=== PATIENT | female | born 1940 | race Caucasian/White ===

== ENCOUNTER 2017-12-19 09:28 | Outpatient (CLI) | payer MEDICARE, OTHER, SELFPAY ==
[2017-12-19 09:54] LABS: Abs Immature Grans 0.03 k/cumm (0.0-0.09); HCT 44.4 % (36.0-46.0); HGB 14.4 g/dL (12.0-15.5); Mean Corp. HGB Concentration 32.4 g/dL (32.0-36.0); Mean Corpuscular Hemoglobin 29.8 pg (27.0-33.0); Mean Corpuscular Volume 91.7 fL (80-95); Mean Platelet Volume 10.5 fL (8.0-11.0); Platelet Count 243 x1000/uL (130-400); RBC 4.84 m/cumm (4.00-5.20); RBC Distribution Width 14.5 % (11.7-14.6); White Blood Cell Count 18.47 k/cumm (4.4-10.8)
[2017-12-19 10:59] LABS: Absolute Lymphocyte Count 13.67 k/cumm (1.2-3.4); Absolute Monocyte Count 1.48 k/cumm (0.11-0.7); Absolute Neutrophil Count 3.32 k/cumm (1.2-6.7); Atypical Lymphocytes % 14
[2017-12-19 11:00] LABS: RBC Morphology Normal
== END 2017-12-19 09:48 ==
PROVIDERS: PCP Nurse Practitioner; Visit Provider Internal Medicine
DX: C91.90 Lymphoid leukemia, unspecified not having achieved remission (principal); D72.0 Genetic anomalies of leukocytes
CPT/HCPCS: 36415; 85025

== ENCOUNTER 2018-08-18 09:15 | Outpatient (REF) | payer MEDICARE, OTHER, SELFPAY ==
[2018-08-19 11:52] LABS: Lyme Ab w Rflx to Lyme Confirm Negative
[2018-08-20 20:13] LABS: Anaplasma phagocytophilum Negative (Negative); B. miyamotoi PCR Negative (Negative); Babesia divergens/MO-1 Negative (Negative); Babesia duncani Negative (Negative); Babesia microti Negative (Negative); Ehrlichia chaffeensis Negative (Negative); Ehrlichia ewingii/canis Negative (Negative); Ehrlichia muris eauclairensis Negative (Negative)
== END 2018-08-18 09:35 ==
LOC: NCHCN 09:15
PROVIDERS: PCP Nurse Practitioner; Visit Provider Nurse Practitioner
DX: M25.50 Pain in unspecified joint (principal); J11.1 Influenza due to unidentified influenza virus with other respiratory manifestations
CPT/HCPCS: 87798; 86618

== ENCOUNTER 2019-02-16 08:09 | Observation (INO) | payer MEDICARE, OTHER, SELFPAY ==
[2019-02-16] VITALS (9 sets, daily range): BP systolic 104–159; BP diastolic 67–83; PULSE 81–92; RESP 7–20; TEMP 36.6–37.1; O2SAT 90–96
--- NOTE | 2019-02-16 08:32 | W.ED.GENAD ---
Discharge Plan Disposition Patient Disposition: [facility] INPATIENT Condition: Improving Discharge Details Chief Complaint: RespSymp Clinical Impression: Community acquired pneumonia Primary Care Provider: Concepcion Vitale ED Provider: Wiliam Rudd Home Meds and New Rx's Prescriptions: No Action aspirin 325 MG tablet 325 mg PO DAILY Qty: 30 RF: 0 pravastatin 40 MG tablet 40 mg PO QPM Qty: 30 RF: 0 metoprolol succinate 50 mg Tablet Extended Release 24 Hr 50 mg PO DAILY RF: 0 Medical Decision Making This is a 78-year-old female with past medical history of hypertension high cholesterol and previous PE years ago who presents today with 9 days of cough, productive green sputum, fevers and chills. Influenza vaccine is up-to-date, pneumonia vaccine was given 4 years ago. She denies any chest pain, or pleuritic chest pain. She has no history of long trips recent surgeries or procedures. No recent admissions. Physical exam demonstrates crackles and scattered wheezes in the right lower lung casanova. Oxygen saturation is in the low 90s, heart rate is less than 100. Physical exam and signs and symptoms are certainly concerning for community-acquired pneumonia. Clinical picture is definitely less likely for PE. Will get chest x-ray, troponin and EKG. Will evaluate for infectious etiology. EKG demonstrates no evidence of STEMI at this time. No signs of significant right heart strain. 9:53 AM Chest x-ray has returned demonstrates evidence of infiltrate in the right mid to lower lung casanova. No evidence of Persaud's hump per radiology. White count is 19.33, which is similar to previous levels. She does have her leukemia that is currently managed at [facility] that they are not treating as it is mild. Platelets are normal. Lactate is minimally elevated at 1.8, troponin, proBNP normal. Influenza negative. Signs and symptoms at this time are clinically inconsistent with PE, and clinically consistent with community-acquired pneumonia. Will give Rocephin and azithromycin for treatment of pneumonia. Due to the patient's age, work of breathing, and clinical symptoms I do feel that discharge would be unwise for the patient at this time. I do feel that at the very least 24-hour Torres for IV antibiotics and continued oxygen evaluation is indicated. I discussed the case with Dr. fowler with the hospitalist, she agrees with the assessment and plan. Patient will be admitted. I have extensively reviewed the treatment plan with the patient. I have addressed all patient concerns at this time. I have also discussed the plan with the admitting physician and they agree with the current assessment and plan and have agreed to assume responsibility for the patient. All parties demonstrate verbal understanding and agreement with our assessment and plan at this time. EKG 8: 27 Rate 86, IA 136, QTc 476, sinus rhythm, no significant ST elevations, there is subtle T wave flattening in 2, 3, and aVF, T wave inversion lead III. Questionable Q waves in lead III. No broad terminal S wave in lead I, minimal less than 1 mm elevation in aVR. Review of prior EKG from 10/31/2014 demonstrate near identical findings. HPI General Date/Time Provider Initiated Documentation: 02/16/19 08:16. HPI Narrative: This is a 78-year-old female with a past medical history of PE years ago after , as well as hypertension high cholesterol who presents today for evaluation of cough, chills, with productive green sputum for the last 9 days. She denies any other sick contacts. She did get her influenza shot this year, she got her pneumonia shot 4 years ago. She denies any chest pain or chest heaviness, she does admit to shortness of breath though, she denies any history of VA. She is not on any blood thinners. She denies any recent long trips, surgeries or procedures. She denies any other complaints at this time. No other modifying factors. No recent admissions in the last 90 days. No recent antibiotics. Related Data Home Medications Medication Instructions Recorded Confirmed aspirin 325 mg PO DAILY #30 tab 11/02/14 02/16/19 pravastatin 40 mg PO QPM #30 tab 11/02/14 02/16/19 metoprolol succinate 50 mg PO DAILY 02/16/19 02/16/19 Previous Rx's Medication Instructions Recorded aspirin 325 mg PO DAILY #30 tab 11/02/14 pravastatin 40 mg PO QPM #30 tab 11/02/14 Allergies Allergy/AdvReac Type Severity Reaction Status Date / Time Sulfa (Sulfonamide Allergy Skin Rash Unverified 02/16/19 08:16 Antibiotics) General Stated Complaint: RespSymp SUSAN: 3 Review of Systems All systems reviewed & are unremarkable except as noted in HPI and below PFSH Social History Smoking/Tobacco Use Status: Never Alcohol Intake: never Drug use: Never Substance use type: does not use Do you feel safe at home: Yes Do you feel safe in your relationship?: Yes Exam Narrative Exam Narrative: 1.Const: Well-nourished, Well-developed, appearing stated age 2.Eyes: PERRL, no conjunctival injection, and symmetrical lids. 3.ENT: Atraumatic external nose and ears. Moist MM. Neck: Symmetric, trachea midline, No thyromegaly. 4.CVS: +S1/S2, No murmurs or gallops. Peripheral pulses 2+ and equal in all extremities. Brisk capillary refill in all extremities. 5.RESP: Unlabored respiratory effort. Notable crackles in the right mid and right lower lobe. Minimal scattered wheezes. No rhonchi. 6.GI: Soft, Nontender/Nondistended, No hepatosplenomegaly. No guarding or rebound. 7.MSK: Normocephalic/Atraumatic, Extremities w/o deformity or ttp No cyanosis or clubbing, Normal movement of all extremities 8.Skin: Warm, Dry. No rashes or lesions. 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 Sensation grossly intact, no focal neurologic deficits. 10.Psych: (AAO) x3. Appropriate mood and affect Course Vital Signs Vital signs: Vital Signs Temperature 36.6 C 02/16/19 08:13 Pulse 92 H 02/16/19 08:13 Respiratory Rate 16 02/16/19 08:13 Blood Pressure 159/83 H 02/16/19 08:13 Pulse Oximetry 90 L 02/16/19 08:13 Temperature 36.6 C 02/16/19 08:13 Temperature Source Temporal Artery Scan 02/16/19 08:13 Pulse 92 H 02/16/19 08:13 Respiratory Rate 16 02/16/19 08:13 Respiratory Effort 02/16/19 08:18 Blood Pressure 159/83 H 02/16/19 08:13 Blood Pressure Position Sitting 02/16/19 08:13 Pulse Oximetry 90 L 02/16/19 08:13 Oxygen Delivery Method Room Air 02/16/19 08:13 Oxygen Flow Rate 0 02/16/19 08:13 Pain Level 0 02/16/19 08:13
[2019-02-16] MEDS: Albuterol/Ipratropium 3 ML UPD VIAL UPD (08:45)
[2019-02-16 08:49] LABS: Lactate 1.8 mmol/L (0.6-1.4)
[2019-02-16 08:50] LABS: HGB 14.7 g/dL (12.0-15.5); Mean Corp. HGB Concentration 33.4 g/dL (32.0-36.0); Mean Corpuscular Hemoglobin 29.7 pg (27.0-33.0); Mean Corpuscular Volume 88.9 fL (80-95); Platelet Count 216 x1000/uL (130-400); RBC 4.95 m/cumm (4.00-5.20); RBC Distribution Width 14.4 % (11.7-14.6); White Blood Cell Count 19.33 k/cumm (4.4-10.8)
[2019-02-16 09:03] LABS: PTT Activated 24.2 sec (21.0-31.4); Prothrombin Time 10.1 sec (9.3-11.0)
[2019-02-16 09:12] LABS: ALT 22 U/L (14-59); AST 18 U/L (15-37); Albumin 3.6 g/dL (3.4-5.0); Alkaline Phosphatase 64 U/L (46-116); Anion Gap 9.3 mmol/L (3-11); BUN 8 mg/dL (7-18); Bilirubin, Total 0.5 mg/dL (0.2-1.0); CO2 26.7 mmol/L (21.0-32.0); CREATININE 0.67 mg/dL (0.55-1.02); Calcium 9.5 mg/dL (8.5-10.1); Chloride 99 mmol/L (98-107); Glucose 103 mg/dL (74-106); NT-proBNP 157 pg/mL (<300); Potassium 3.7 mmol/L (3.5-5.1); Sodium 135 mmol/L (136-145); Total Protein 7.7 g/dL (6.4-8.2)
[2019-02-16 09:13] LABS: Troponin I < 0.05 ng/Ml (<0.06)
--- NOTE | 2019-02-16 09:13 | DI.RAD_ITS ---
EXAM: XR CHEST 2V PA LATERAL INDICATION: SOB, cough, productive. COMPARISON: CHEST 2 VIEWS PA,LAT from 10/31/2014 TECHNIQUE: 2D digital imaging was performed. FINDINGS: The heart is enlarged. The aorta is tortuous. There are linear areas of scarring at the lung bases. The lungs are not well inflated on the lateral view. There is a question of some increased densiti es seen at the lung bases which could represent atelectasis versus infiltrate. There is a pectus exc avatum deformity. IMPRESSION: Question of basilar atelectasis versus infiltrate.
[2019-02-16 09:14] LABS: Absolute Neutrophil Count 8.51 k/cumm (1.2-6.7)
[2019-02-16 09:15] LABS: Absolute Eosinophil Count 0.19 k/cumm (0.0-0.7); Absolute Monocyte Count 0.19 k/cumm (0.11-0.7); Atypical Lymphocytes % 6
[2019-02-16 09:18] LABS: Absolute Lymphocyte Count 10.44 k/cumm (1.2-3.4)
[2019-02-16 09:19] LABS: Diff Comment Manual Differential; RBC Morphology Normal
--- NOTE | 2019-02-16 09:47 | HPE_ITS ---
Date of service: 02/16/19 Time of Service: 09:47 Assessment and Plan Assessment and plan (1) Community acquired bacterial pneumonia: Status: Acute Assessment and plan: curb score is 1 which makes patient low risk, she is currently using minimal suplemental 02. will treat with ceftriazone/azithromycin . if she is able to wean off oxygen she could be discharged on oral antibiotic tmrw (2) Leukocytosis: Status: Acute Assessment and plan: secondary chronic leukemia, at baseline (3) HTN (hypertension): Status: Chronic Assessment and plan: she is not septic and BP is stable, will continue metoprolol (4) History of pulmonary embolus during : Status: Acute Assessment and plan: she is mildly hypoxic and clinical picture is much more consistent with PNA. will continue on DVT ppx. if worsens or does not improve could consider ruling out PT with CT History of Present Illness History of Present Illness Chief Complaint: cough, dyspnea Narrative: 78 y//o F with PMH HTN, HLD, chronic leukemia (not on any active treatment, followed at [facility]), remote history provoked PE in setting who presents with 9 days of fevers, chills, and cough. She described cough as productive of green/yellow sputum. She has dyspnea associated with the cough. She denies CP, hemoptysis, leg swelling. Upon arrival to the ED she was afebrile and HD stable. She was maintaining o2 sats in low 90s. CXR showed possible bibasilar PNA. EKG showed t wave flattening in v4-v6, troponin negative. Labs notable for leukcytosis to 19k which is consistenct with patients baseline, otherwise normal BMP, negative lactate. She received ceftriaxone and azithromycin in ED. She has a remote smoking history but quit as teenager. She lives with her and independent in ADLs. Review of Systems All systems reviewed & are unremarkable except as noted in HPI and below PFSH Medical History Chronic leukemia (Acute) HTN (hypertension) (Chronic) Surgical History H/O hysterectomy for benign disease (Acute) History of cholecystectomy (Chronic) Social History Smoking/Tobacco Use Status: Never Alcohol Intake: never Drug use: Never Substance use type: does not use Do you feel safe at home: Yes Do you feel safe in your relationship?: Yes Meds Home Medications and Allergies Home Medications Medication Instructions Recorded Confirmed Type aspirin 325 mg PO DAILY #30 tab 11/02/14 02/16/19 Rx pravastatin 40 mg PO QPM #30 tab 11/02/14 02/16/19 Rx metoprolol succinate 50 mg PO DAILY 02/16/19 02/16/19 History Allergies Allergy/AdvReac Type Severity Reaction Status Date / Time Sulfa (Sulfonamide Allergy Skin Rash Unverified 02/16/19 08:16 Antibiotics) Exam Narrative Exam Narrative: GEN: NAD, non toxic HEENT: NCAT, MMM CV: RRR, nl s1 and s2, no murmur LUNGS: normal WOB, no acessory muscle use, no wheeze, fine crackles at the bases ABD: soft, NT, ND EXT: symmetrical, no edema Results Labs Result diagrams: 02/16/19 08:40 02/16/19 08:40 Labs: Laboratory Results - last 24 hr 02/16/19 02/16/19 02/16/19 08:40 08:40 08:40 WBC 19.33 H RBC 4.95 Hgb 14.7 Hct 44.0 MCV 88.9 MCH 29.7 MCHC 33.4 RDW 14.4 Plt Count 216 MPV 10.0 Immature Gran % 0.0 Neutrophils % 44.0 Lymphocytes % 48.0 Atypical Lymphs % 6 Monocytes % 1.0 Eosinophils % 1.0 Basophils % 0.0 Absolute Neutrophils 8.51 H Absolute Lymphocytes 10.44 H Absolute Monocytes 0.19 Absolute Eosinophils 0.19 Absolute Basophils 0.00 Differential Comment Manual differential RBC Morphology Normal PT INR APTT Sodium 135 L Potassium 3.7 Chloride 99 Carbon Dioxide 26.7 Anion Gap 9.3 BUN 8 Creatinine 0.67 Estimated GFR/1.73 m2 >= 60.00 Glucose 103 Lactate 1.8 H Calcium 9.5 Total Bilirubin 0.5 AST 18 ALT 22 Alkaline Phosphatase 64 Troponin I < 0.05 NT-Pro-B Natriuret Pep 157 Total Protein 7.7 Albumin 3.6 02/16/19 08:40 WBC RBC Hgb Hct MCV MCH MCHC RDW Plt Count MPV Immature Gran % Neutrophils % Lymphocytes % Atypical Lymphs % Monocytes % Eosinophils % Basophils % Absolute Neutrophils Absolute Lymphocytes Absolute Monocytes Absolute Eosinophils Absolute Basophils Differential Comment RBC Morphology PT 10.1 INR 1.0 APTT 24.2 Sodium Potassium Chloride Carbon Dioxide Anion Gap BUN Creatinine Estimated GFR/1.73 m2 Glucose Lactate Calcium Total Bilirubin AST ALT Alkaline Phosphatase Troponin I NT-Pro-B Natriuret Pep Total Protein Albumin Last Vital Signs Temp 36.6 C 02/16/19 08:13 Pulse 92 H 02/16/19 08:45 Resp 16 02/16/19 08:45 BP 159/83 H 02/16/19 08:13 Pulse Ox 90 L 02/16/19 08:45
[2019-02-16] MEDS: cefTRIAXone 2 GM/50 ML BAG IVPB (10:01)
[2019-02-16] MEDS: AZITHROMYCIN 500 MG in Normal Saline 250 ML 250 MG IVPB (11:08)
[2019-02-16] MEDS: Heparin 5,000 UNITS/ML VIAL 5000 UNITS SC ×2 (11:08→18:28)
--- NOTE | 2019-02-16 11:21 | NUR.NOTE ---
Patient arrived from ER on stretcher at 1040 with REINA Stein and VIKKI from ER. Patient transferred to the bed. AAOX3, see admission assessment. Coughing, denies pain other than from coughing.Nursing Note:
[2019-02-16 12:14] LABS: Troponin I < 0.05 ng/Ml (<0.06)
[2019-02-16] MEDS: Metoprolol CR 50 MG TABCR PO (16:22)
[2019-02-16] MEDS: Pravastatin 40 MG TAB PO (19:26)
[2019-02-17] MEDS: Heparin 5,000 UNITS/ML VIAL 5000 UNITS SC ×2 (03:04→09:21)
[2019-02-17 03:10] VITALS: BP 126/74; PULSE 79; RESP 20; TEMP 36.5; O2SAT 92
[2019-02-17] MEDS: Normal Saline Flush 10 ML SYR IVP ×2 (03:11→09:20)
[2019-02-17 06:46] LABS: Abs Immature Grans 0.04 k/cumm (0.0-0.09); Absolute Eosinophil Count 0.16 k/cumm (0.0-0.7); Absolute Monocyte Count 1.09 k/cumm (0.11-0.7); Basophils % 0.3; Eosinophils % 0.7; HGB 12.9 g/dL (12.0-15.5); Immature Grans % 0.2; Lymphocytes % 71.2; Mean Corp. HGB Concentration 33.1 g/dL (32.0-36.0); Mean Corpuscular Hemoglobin 29.7 pg (27.0-33.0); Mean Corpuscular Volume 89.7 fL (80-95); Mean Platelet Volume 10.2 fL (8.0-11.0); Monocytes % 4.8; Neutrophils % 22.8; Platelet Count 213 x1000/uL (130-400); RBC 4.35 m/cumm (4.00-5.20); RBC Distribution Width 14.3 % (11.7-14.6); White Blood Cell Count 22.67 k/cumm (4.4-10.8)
[2019-02-17 06:50] LABS: Absolute Basophil Count 0.07 k/cumm (0.0-0.2); Absolute Lymphocyte Count 16.14 k/cumm (1.2-3.4); Absolute Neutrophil Count 5.17 k/cumm (1.2-6.7)
[2019-02-17 07:03] LABS: BUN 8 mg/dL (7-18); Calcium 8.8 mg/dL (8.5-10.1); Chloride 103 mmol/L (98-107); Glucose 98 mg/dL (74-106); Potassium 3.7 mmol/L (3.5-5.1); Sodium 139 mmol/L (136-145)
[2019-02-17 07:11] LABS: Diff Comment Agrees w/ Instrument; RBC Morphology Normal
[2019-02-17 07:49] VITALS: BP 109/58; PULSE 69; RESP 18; TEMP 37; O2SAT 93
[2019-02-17] MEDS: Aspirin 325 MG TAB PO (08:05)
[2019-02-17] MEDS: Azithromycin 250 MG TAB PO (08:05)
[2019-02-17 08:07] VITALS: RESP 20; O2SAT 92
[2019-02-17] MEDS: cefTRIAXone 1 GM/50 ML BAG IVPB (09:20)
--- NOTE | 2019-02-17 09:57 | PDOC.CMIN ---
- If Service Date Differs Date of service: 02/17/19 Time of Service: 09:57 Care Management Initial Assess REASON FOR HOSPITALIZATION:: Community acquired pneumonia. PAST MEDICAL HISTORY/PAST SURGICAL HISTORY:: Medical History: Chronic leukemia and HTN (hypertension). Surgical History: H/O hysterectomy for benign disease and History of cholecystectomy. PREVIOUS FUNCTIONAL STATUS/SOCIAL/FAMILY SUPPORTS:: Any lives with her in [place] in their own home. She reports she drives, cooks, cleans, and is independent with her ADLs at baseline. She names her son as a source of support. CURRENT FUNCTIONAL STATUS:: Any is dressed and is gathering her belongings when comes to meet with her. Her son is present in the room. Any states she is feeling better and is looking forward to returning home. ADVANCE DIRECTIVES:: On file; Turner Gasca Sr., is agent. Has patient been provided with information about the portal?: No Did the patient sign up for the portal?: No CODE STATUS:: Full Code INSURANCE COVERAGE / FINANCIAL ISSUES:: [employer] and Medicare CURRENT HOME/COMMUNITY SERVICES/EQUIPMENT:: No current services or DME. PRIMARY CARE PHYSICIAN:: Concepcion Obrien NP ([facility]) POTENTIAL DISCHARGE NEEDS:: Follow up appointment with PCP and [facility] oncology. PATIENT/FAMILY EDUCATION NEEDS:: Discharge plan, limitations, plan of care, including Ask Me Three and self-management. ANTICIPATED BARRIERS TO DISCHARGE:: None. TRANSPORTATION:: Via private vehicle with family. PLAN:: Any will be discharged home when medically cleared by provider. Anticipate she will return home with no new services at time of discharge. Her son will transport her home via private vehicle when ready.
--- NOTE | 2019-02-17 10:04 | DSE_ITS ---
Date of service: 02/17/19 Time of Service: 10:04 DS: Diagnosis Discharge Diagnosis (1) Community acquired bacterial pneumonia: Status: Acute (2) Leukocytosis: Status: Acute (3) HTN (hypertension): Status: Chronic (4) History of pulmonary embolus during : Status: Acute Discharge Plan Disposition Patient Disposition: HOME Condition: Improving Discharge Details Chief Complaint: RespSymp Clinical Impression: Community acquired pneumonia Reason For Visit: COMMUNITY AQUIRED PNEUMONIA Admit Date/Time: 02/16/19 09:41 Admit Provider: Yola Selby Attending Provider: Yola Selby Primary Care Provider: Concepcion Vitale ED Provider: Wiliam Rudd Hospital Course Hospital Course: Any Gasca is a very pleasant 78 year old female with a past medical history significant for hypertension, hyperlipidemia, chronic leukemia, not on active treatment, followed by [facility], remote history of provoked PE in the setting of who presented to the emergency department yesterday with a several day history of fevers, chills and cough. Her cough is productive of green/yellow sputum. She also reported shortness of breath. In the emergency department, she was afebrile, her oxygen saturation was in the low 90s on 1 L via nasal cannula, her chest x-ray showed possible bibasilar pneumonia her EKG showed T wave flattening in V4 through V6, her troponin was negative. Her labs were notable for leukocytosis of 19,000 which was near her baseline. Her lactate was mildly elevated at 1.8. She was initiated on ceftriaxone and azithromycin in the emergency department. She was admitted to the [facility] floor for further observation and management. By the following morning, she was no longer short of breath. She continued to have an occasional cough, productive of white sputum. She occasionally felt wheezy. She denies chest pain/pressure, palpitations. She is eating and drinking and tolerating her diet, no nausea, vomiting or diarrhea. She did not sleep very well in the hospital last night. She is looking forward to discharge home. She is maintaining her oxygen saturation in the low 90s on room air. She will be discharged home to complete a 5-day course of oral antibiotics and follow-up with her primary care provider next week. Home Meds and New Rx's Prescriptions: New azithromycin 250 mg Tablet 250 mg PO DAILY Qty: 3 RF: 0 aspirin 81 mg Tablet,Chewable 81 mg PO DAILY Qty: 0 RF: 0 cefpodoxime 200 mg tablet 200 mg PO BID Qty: 6 RF: 0 Continued pravastatin 40 MG tablet 40 mg PO QPM Qty: 30 RF: 0 metoprolol succinate 50 mg Tablet Extended Release 24 Hr 50 mg PO DAILY RF: 0 Discontinued aspirin 325 MG tablet 325 mg PO DAILY Qty: 30 RF: 0 Discharge Instructions Instructions: Community Acquired Pneumonia (DC) Additional Instructions: Take the antibiotics until they are gone. Follow up with your PCP as scheduled. Drink plenty of fluids. Return to the ED for worsening condition, fever. Use incentive spirometer at home. Take care! Stand Alone Forms: Nursing Discharge Form Referrals: Concepcion Vitale [Primary Care Provider] - 02/22/19 2:45 pm Activity:: Activity as Tolerated Equipment/Supplies:: No Equipment Needed Diet:: As Tolerated Discharge Orders Discharge Orders: Discharge Order (Routine); Ordered 02/17/19 Ordered By: Hoda Singh DS: Summary Status at Discharge Functional status at discharge: independent ambulation Overall status at discharge: patient is progressing back to baseline Mental Status: mental status grossly normal Speech and Movement: speech and movement normal Mood: congruent mood Affect: normal affect Exam Narrative Exam Narrative: General: Elderly female, sitting up in the recliner with her feet elevated. Alert and oriented, pleasant and cooperative, answers questions appropriately. No shortness of breath while speaking in complete sentences. HEENT: Pale, normocephalic, atraumatic, pupils equal and round, extraocular movements intact, mucous membranes moist. Neck: Supple, no JVD. Cardiovascular: Heart has regular rate and rhythm, no murmur appreciated. Respiratory: Respirations appear even and unlabored, does not appear short of breath, fine crackles at bases, occasional scattered wheeze. GI: Normal active bowel sounds, abdomen soft, nontender on palpation, nondistended. Extremities: No clubbing, cyanosis or significant edema. Psych Mental Status: mental status grossly normal Speech and Movement: speech and movement normal Mood: congruent mood Affect: normal affect DS: Data Vitals/I&O Vitals and I&O: Vital Signs Temperature 37 C 02/17/19 07:49 Temperature Source Tympanic 02/17/19 07:49 Pulse 69 02/17/19 07:49 Pulse Rhythm Regular 02/17/19 08:11 Respiratory Rate 20 02/17/19 08:07 Respiratory Effort Non-Labored 02/17/19 08:11 Respiratory Depth Normal 02/17/19 08:11 Respiratory Pattern Normal 02/17/19 08:11 Blood Pressure 109/58 L 02/17/19 07:49 Blood Pressure Position Sitting 02/16/19 08:13 Pulse Oximetry 92 L 02/17/19 08:07 Oxygen Delivery Method Room Air 02/17/19 08:07 Oxygen Flow Rate 0 02/17/19 08:07 Pain Level 0 02/17/19 07:49 Comment 02/16/19 19:30 Intake & Output 02/16/19 02/16/19 02/17/19 11:59 23:59 11:59 Intake Total 360 / 360 Balance 360 / 360 Weight 76.204 kg 77 kg Intake: IV Oral 360 / 360 Other: Urine Color Yellow Urine Appearance Clear Clear Clear Urine Odor None Comment Not measured Voiding Methods Toilet Toilet Data Completed and Pending Completed studies during hospitalization [Text1]: 02/16/2019: EXAM: XR CHEST 2V PA LATERAL INDICATION: SOB, cough, productive. COMPARISON: CHEST 2 VIEWS PA,LAT from 10/31/2014 TECHNIQUE: 2D digital imaging was performed. FINDINGS: The heart is enlarged. The aorta is tortuous. There are linear areas of scarring at the lung bases. The lungs are not well inflated on the lateral view. There is a question of some increased densities seen at the lung bases which could represent atelectasis versus infiltrate. There is a pectus excavatum deformity. IMPRESSION: Question of basilar atelectasis versus infiltrate. Labs on day of discharge: Labs from last 24 hours 02/17/19 02/17/19 02/16/19 06:29 06:29 11:40 WBC 22.67 H RBC 4.35 Hgb 12.9 Hct 39.0 MCV 89.7 MCH 29.7 MCHC 33.1 RDW 14.3 Plt Count 213 MPV 10.2 Immature Gran % 0.2 Neutrophils % 22.8 Lymphocytes % 71.2 Monocytes % 4.8 Eosinophils % 0.7 Basophils % 0.3 Absolute Neutrophils 5.17 Absolute Lymphocytes 16.14 H Absolute Monocytes 1.09 H Absolute Eosinophils 0.16 Absolute Basophils 0.07 Differential Comment Agrees w/ instrument RBC Morphology Normal Sodium 139 Potassium 3.7 Chloride 103 Carbon Dioxide 27.0 Anion Gap 9.0 BUN 8 Creatinine 0.50 L Estimated GFR/1.73 m2 >= 60.00 Glucose 98 Calcium 8.8 Troponin I < 0.05 02/16/19 09:03 Blood Blood Culture - Pending 02/16/19 08:40 Blood Blood Culture - Pending Preliminary micro results at discharge 02/16/19 09:03 Blood Culture - Pending Blood 02/16/19 08:40 Blood Culture - Pending Blood [facility] Medical History Chronic leukemia (Acute) HTN (hypertension) (Chronic) Surgical History H/O hysterectomy for benign disease (Acute) History of cholecystectomy (Chronic) Social History Smoking/Tobacco Use Status: Never Alcohol Intake: never Drug use: Never Substance use type: does not use Do you feel safe at home: Yes Do you feel safe in your relationship?: Yes
[2019-02-17 10:26] VITALS: RESP 1; O2SAT 92
[2019-02-17] MEDS: Albuterol/Ipratropium 3 ML UPD VIAL UPD (10:26)
--- NOTE | 2019-02-17 17:37 | CMDISCH_ITS ---
- If Service Date Differs Date of service: 02/17/19 Time of Service: 17:37 LACE Index Scoring Tool - Questions: Length of Stay (in days): 1 Acuity (Admit via E.D.?): Yes Comorbidities: Any Tumor (Leukemia being followed by [facility]) E.D. Visits: 1 - Answers: Total Score: 7 Risk of Readmission: Low Risk Care Management Discharge Reason for Hospitalization: Community acquired pneumonia. Discharge Plan: Any is being discharge home with no new services. She will follow up with her PCP and [facility] oncology as directed. Her son is transporting her home via private vehicle. Patient/Family Education Needs: Nursing will review discharge instructions with Any re medications and follow up appointments. Any is able to verbalize reason for hospitalization and how to manage care at home.
== END 2019-02-17 12:33 | disposition home or self-care (01) ==
LOC: ER 09:55 → MS 10:37
PROVIDERS: Admitting Provider Internal Medicine; Emergency Provider Student in an Organized Health Care Education/Training Program; PCP Nurse Practitioner; Visit Provider Family Medicine
DX: J15.9 Unspecified bacterial pneumonia (principal); C95.10 Chronic leukemia of unspecified cell type not having achieved remission; I10 Essential (primary) hypertension; E78.5 Hyperlipidemia, unspecified; R09.02 Hypoxemia
CPT/HCPCS: 36415; 80048; 80053; 87040; 87449; 93005; 94640; 96365; 99222; 99239; 99285; 71046; 83605; 83880; 84484; 85025; 85610; 85730; 93010; 99217; 99219; 99284; G0378; J0456; J0696; J1644; J7620

== ENCOUNTER 2019-10-27 01:10 | Outpatient (CLI) | payer MEDICARE, OTHER, SELFPAY ==
--- NOTE | 2019-10-27 11:44 | DI.US_ITS ---
APPROVED REPORT EXAM: Comprehensive 2D, Doppler, and color-flow Echocardiogram Patient Location: Out-Patient Web Marketing Intern: Lashanda Marte RDCS (AE) Indications: Arrhythmiam s/p Ablation, SVT Other Information Study Quality: Fair Conclusion Left Ventricle : The left ventricle is normal size. The left ventricular systolic function is normal. The left ventricular ejection fraction is within the normal range. There is normal left ventricular wall thickness. There is normal LV segmental wall motion. The left ventricular diastolic function is normal. LVEF is 60%. Right Ventricle : The right ventricle is normal size. The right ventricular systolic function is norm al. Atria : The left atrium size is normal. The right atrium size is normal. Aortic Valve : The Aortic valve is sclerotic. The aortic valve is not well visualized. Mild aortic re gurgitation. There is no aortic valvular stenosis. Mitral Valve : Mild mitral annular calcification. No evidence of mitral valve stenosis. Mild mitral r egurgitation. Great Vessels : The aortic root is normal in size. The ascending aorta is mildly dilated. IVC is norm al in size and collapses >50% with inspiration. Pericardium : Trace pericardial effusion. Prominent anterior epicardial fat pad is present. Compared to study from 11/01/2014: There is no significant change. Wall motion Left Ventricle The left ventricle is normal size. The left ventricular systolic function is normal. The left ventric ular ejection fraction is within the normal range. There is normal left ventricular wall thickness. T here is normal LV segmental wall motion. The left ventricular diastolic function is normal. There is no ventricular septal defect visualized. LVEF is 60%. Right Ventricle The right ventricle is normal size. The right ventricular systolic function is normal. Atria The left atrium size is normal. The right atrium size is normal. The interatrial septum is intact wit h no evidence for an atrial septal defect. Aortic Valve The Aortic valve is sclerotic. The aortic valve is not well visualized. There is no aortic valvular s tenosis. Mild aortic regurgitation. Mitral Valve Mild mitral annular calcification. No evidence of mitral valve stenosis. Mild mitral regurgitation. Tricuspid Valve The tricuspid valve is normal in structure. There is no tricuspid valve stenosis. Trace tricuspid reg urgitation. Unable to assess PA pressure. Pulmonic Valve Pulmonic valve is not well visualized. There is no pulmonic valvular stenosis. There is no pulmonic v alvular regurgitation. Great Vessels The aortic root is normal in size. The ascending aorta is mildly dilated. IVC is normal in size and c ollapses >50% with inspiration. Pericardium Trace pericardial effusion. Prominent anterior epicardial fat pad is present. 2D Dimensions IVSD d PLAX 0.85 cm F: 0.6-1.0 LV Vol A2C d MOD 61.4 mL LVPW d PLAX 0.91 cm F: 0.6 - 1.0 LV Vol A4C d MOD 63.3 mL LVID d PLAX 4.54 cm F: 3.8 - 5.2 LA vol/ BSA A2C s A-L 33.7 mL/m2 LVDs 3.15 cm F: 2.2 - 3.5 LA vol/ BSA A4C s A-L 19.4 mL/m2 Ao Root d 2.59 cm F: 2.7 - 3.3 LA Vol/ BSA Biplane s A-L 25.8 mL/m2 RA Area A4C 15.45 cm2 LA Area A4C s MOD 14.69 cm2 RA Vol/ BSA A4C s A-L 26.3 mL/m2 LA Area A2C s MOD 19.15 cm2 Ao Asc Diam d 3.22 cm F: 2.3 - 3.1 LV EF A4C MOD 60.0 % LV EF Teichholz 57.5 % LV EF A2C MOD 58.2 % LVEF (Pham's) 56.75 % F: 54 - 74 LV EF Biplane MOD 56.8 % LV Volume 49.95 mL F: 46 - 106 SV 35.79 mL LV Volume Index 29.21 mL/m2 F: 29 - 61 SV Index 20.90 mL/m2 LV Vol Biplane MOD 63.1 mL FS 30.10 % M-Mode TAPSE 2.36 cm (M/F) >1.7 LV Diastology MV E' medial 0.094 (>0.07 m/s) E/A Ratio 1.5 LV E/e MED 9.75 (<14) MV E Vmax 0.92 (0.4-1.3 m/s) MV E' lateral 0.114 (>0.1 m/s) MV A Vmax 0.60 (0.4-1.3 m/s) LV E/e LAT 8.10 (<14) MV E/A Ratio 1.45 MV E/E' medial 9.78 MV E/E' lateral 8.10 Aortic Valve LVOT Area 3.18 cm2 AoV Area Vmax 2.53 cm2 LVOT Vmax 0.91 m/s AoV Area/ BSA (Vmax) 1.48 cm2/m2 LVOT Mean Samir. 0.58 m/s PARVEZ Mean Samir. 2.17 cm2 LVOT Peak Grad 3.3 mmHg PARVEZ Mean Saimr. Index 1.27 cm2/m2 LVOT Mean Grad 1.6 mmHg LVOT VTI 0.216 m LVOT Diam s 2.00 cm AoV Vmax 1.14 m/s Velocity Ratio 0.79 AoV Mean Samir. 0.85 m/s AoV Peak Grad 5.2 mmHg LVOT SV 68.82 mL AoV Mean Grad 3.2 mmHg AoV VTI 0.261 m AoV Area VTI 2.64 cm2 AoV Area/ BSA (VTI) 1.54 cm/m2 Mitral Valve MV DT 151 (160-240 msec) MV PHT 44 msec MV Area PHT 5.04 cm2 MV VTI 0.244 m MV Area VTI 2.82 (4.0-6.0 cm2) Pulmonary Valve PV Vmax 0.77 (0.5-1.5 m/s) RVOT Peak Gr. 1.00 mmHg PV Peak Grad 2.4 mmHg RVOT Mean Gr. 0.55 mmHg PV Mean Grad 1.2 mmHg RVOT VTI 0.112 m PV VTI 0.147 m RVOT Vmax 0.50 m/s Tricuspid Valve TR Peak Grad 10.6 mmHg TR Vmax 1.63 m/s RA Pressure 3.00 mmHg RVSP (TR) 13.7 mmHg
== END 2019-10-27 01:30 ==
PROVIDERS: PCP Nurse Practitioner; Visit Provider Physician Assistant Medical
DX: I49.9 Cardiac arrhythmia, unspecified (principal); Z98.890 Other specified postprocedural states; I47.1 Supraventricular tachycardia; I08.0 Rheumatic disorders of both mitral and aortic valves; I77.810 Thoracic aortic ectasia; C91.10 Chronic lymphocytic leukemia of B-cell type not having achieved remission
CPT/HCPCS: 36415; 80053; 83615; 85025; 93306

== ENCOUNTER 2019-10-27 03:07 | Outpatient (CLI) | payer MEDICARE, OTHER, SELFPAY ==
[2019-10-27 07:16] LABS: HGB 13.9 g/dL (11.2-15.7); MCH 29.2 pg (27.0-33.0); MCHC 31.6 % (32.0-36.0); MCV 92.4 fL (80-95); MPV 10.3 fL (8.0-11.0); Nucleated RBC 0 %; Platelet Count 235 10^3/uL (130-400); RBC 4.76 10^6/uL (3.93-5.22); RDW 14.1 % (11.7-14.6)
[2019-10-27 07:28] LABS: ALT 30 U/L (14-59); AST 19 U/L (15-37); Albumin 3.7 g/dL (3.4-5.0); Alkaline Phosphatase 53 U/L (46-116); Anion Gap 8.2 mmol/L (3-11); BUN 6 mg/dL (7-18); Bilirubin, Total 0.4 mg/dL (0.2-1.0); CO2 28.8 mmol/L (21.0-32.0); CREATININE 0.78 mg/dL (0.55-1.02); Calcium 9.6 mg/dL (8.5-10.1); Chloride 104 mmol/L (98-107); Glucose 96 mg/dL (74-106); LDH 132 U/L (81-234); Potassium 3.5 mmol/L (3.5-5.1); Sodium 141 mmol/L (136-145)
[2019-10-27 07:48] LABS: Absolute Lymphocyte Count 21.17 10^3/uL (1.2-3.4); Absolute Neutrophil Count 2.99 10^3/uL (1.2-6.7); Atypical Lymphocytes % 4
[2019-10-27 07:49] LABS: Absolute Monocyte Count 0.75 10^3/uL (0.1-0.8); Diff Comment Manual Differential; RBC Morphology Normal
== END 2019-10-27 03:27 ==
PROVIDERS: PCP Nurse Practitioner; Visit Provider Internal Medicine
DX: C91.10 Chronic lymphocytic leukemia of B-cell type not having achieved remission (principal)
CPT/HCPCS: 36415; 80053; 83615; 85025

== ENCOUNTER 2020-04-07 09:38 | Observation (INO) | payer MEDICARE, OTHER, SELFPAY ==
[2020-04-07] VITALS (25 sets, daily range): BP systolic 102–176; BP diastolic 51–112; PULSE 65–104; RESP 10–21; TEMP 36.3–36.8; O2SAT 93–99
--- NOTE | 2020-04-07 | DI.US_ITS ---
EXAM: US LOWER EXTREMITY VENOUS LT CLINICAL HISTORY: red, swollen, DVT TECHNIQUE: Left lower extremity venous ultrasound performed using grayscale, color-flow, and spectra l Doppler analysis. COMPARISON: No exams were available for comparison FINDINGS: The left common femoral, femoral and popliteal veins demonstrate normal compressibility, augmentation , and color Doppler. The posterior tibial veins are patent. The saphenofemoral junction is unremarka ble. There is no evidence of a Argueta cyst. The soft tissues are unremarkable. IMPRESSION: No DVT. DATA REPOSITORY:
--- NOTE | 2020-04-07 09:30 | RT.EKG_ITS ---
APPROVED REPORT Exam: Resting ECG Patient Location: E HR:89 bpm ECG Measurements Heart Rate 89 AXIS ID 155 P 44 QRSd 80 QRS -23 QT 412 T 7 QTc 503 Conclusion Sinus rhythm...normal P axis, V-rate 60- 99 Low voltage, precordial leads...precordial leads <1.0mV Nonspecific repol abnormality, diffuse leads...ST dep, T flat/neg, ant/lat/inf Prolonged QT interval...QTc >500mS
[2020-04-07] MEDS: Normal Saline Flush 10 ML SYR IVP (09:55)
--- NOTE | 2020-04-07 10:00 | DI.CT_ITS ---
EXAM: CT CHEST PE CTA CLINICAL HISTORY: hx of PE< left chest pain and sob. TECHNIQUE: Imaging Protocol: Axial CT angiography was performed with multi-slice acquisition and mu lti-planar and/or 3D reconstructions. CONTRAST MATERIAL: Intravenous: Omnipaque 350 Contrast volume:68 mL COMPARISON: No exams were available for comparison FINDINGS: Tracheobronchial tree: Patent where visualized. Pulmonary parenchyma: There are infiltrates seen in the lower lobes, right middle lobe and left lingu la. This may represent atelectasis, pneumonia or scarring. Please correlate clinically. No pulmona ry nodules are seen. Pulmonary Arteries: There is a filling defects seen in the vessel to the left upper lobe consistent w ith a pulmonary embolus. Mediastinum and Ludivina: No dominant adenopathy or fluid collection. Visualized thyroid gland: There may be a solid nodule at the inferior pole of the left lobe of the th yroid gland. Nonemergent thyroid ultrasound may be obtained for further evaluation. Pleura: No effusion or pneumothorax. Heart: The heart is not dilated. Mild coronary artery calcification. No evidence of right heart stra in. No pericardial effusion. Aorta: Thoracic aorta non-dilated. Atherosclerosis. No evidence of dissection. Upper abdomen: Unremarkable. Soft tissues: Unremarkable. Bones: Degenerative changes. IMPRESSION: 1. Pulmonary embolus to a branch of the pulmonary artery to the left upper lobe. No evidence of righ t heart strain. 2. No evidence of aortic dissection or aneurysm. 3. Bilateral pulmonary opacities which may represent atelectasis, scarring or pneumonia. Please sherine elate clinically. 4. Findings were discussed with the emergency department on the date of the examination. RADIATION DOSE DELIVERED: 352.71mGy.cm Total DLP DATA REPOSITORY: All CT scans at this facility are submitted to the National Radiology Data Registry (NRDR) Dose Index Registry (DIR) with the [employer] (ACR). RADIATION OPTIMIZATION: All CT scans at this facility use at least one of these dose optimization te chniques: automated exposure control; mA and/or kV adjustment per patient size (includes targeted exa ms where dose is matched to clinical indication); or iterative reconstruction.
[2020-04-07 10:26] LABS: Abs Immature Grans 0.05 10^3/uL (0.0-0.06); Absolute Eosinophil Count 0.21 10^3/uL (0.0-0.7); Basophils % 0.4; Eosinophils % 0.8; HCT 44.9 % (36.0-46.0); HGB 14.8 g/dL (11.2-15.7); Immature Grans % 0.2; MCH 30.3 pg (27.0-33.0); MCV 91.8 fL (80-95); MPV 10.6 fL (8.0-11.0); Monocytes % 3.7; Neutrophils % 20.7; Nucleated RBC 0 %; Platelet Count 253 10^3/uL (130-400); RBC 4.89 10^6/uL (3.93-5.22); RDW 13.6 % (11.7-14.6); RDW-SD 46.4 fL
[2020-04-07 10:42] LABS: ALT 20 U/L (14-59); AST 13 U/L (15-37); Albumin 3.7 g/dL (3.4-5.0); Alkaline Phosphatase 74 U/L (46-116); Anion Gap 8.8 mmol/L (3-11); BUN 7 mg/dL (7-18); Bilirubin, Total 0.4 mg/dL (0.2-1.0); CO2 27.2 mmol/L (21.0-32.0); CREATININE 0.8 mg/dL (0.55-1.02); Calcium 9.8 mg/dL (8.5-10.1); Chloride 103 mmol/L (98-107); Glucose 95 mg/dL (74-106); NT-proBNP 224 pg/mL (<300); Potassium 3.7 mmol/L (3.5-5.1); Sodium 139 mmol/L (136-145); Total Protein 7.6 g/dL (6.4-8.2)
[2020-04-07 10:43] LABS: Troponin I < 0.05 ng/mL (<0.06)
[2020-04-07 10:44] LABS: Absolute Basophil Count 0.11 10^3/uL (0.0-0.2); Absolute Lymphocyte Count 19.92 10^3/uL (1.2-3.4); Absolute Monocyte Count 0.99 10^3/uL (0.1-0.8); Absolute Neutrophil Count 5.56 10^3/uL (1.2-6.7); Diff Comment Agrees w/ Instrument; WBC 26.84 10^3/uL (4.4-10.8)
[2020-04-07 10:45] LABS: Lymphocytes % 74.2; RBC Morphology Normal
--- NOTE | 2020-04-07 10:54 | ED.GENADUL_ITS ---
Discharge Plan Discharge Details Chief Complaint: SOB Admit Date/Time: 04/07/20 11:52 Admit Provider: Bud Pimentel Attending Provider: Bud Pimentel Primary Care Provider: Concepcion Vitale ED Provider: Franca Serrano Medical Decision Making Patient is alert, oriented, pleasant in demeanor Patient is elevated at 111, concerned regarding sending patient home regarding this high risk level Case discussed with admitting hospitalist, Dr. Pimentel Lovenox was initiated and patient will be admitted BNP and troponin negative CTA PE discussed with Dr. Thayer, radiologist and patient does not have evidence of infarct or strain, however patient does have a subsegmental pulmonary embolism EKG does not show acute pathology At this time patient is hemodynamically stable, she is not in any respiratory distress, nor she hypoxic Lovenox was initiated after discussion with patient Differential Diagnosis Differential Diagnosis: Angina, pulmonary embolism, pneumothorax, pneumonia Medical Records Medical records reviewed: Yes I reviewed the patient's medical records. Lab Data Lab results reviewed: Yes I reviewed the patient's lab results. ECG Data Prior ECG tracings: available for review HPI This 80-year-old female presents with chest pain and shortness of breath started yesterday. She states she has a history of pulmonary embolism 48 years ago. She is not currently anticoagulated and has not had recurrence since that time. She has some intermittent left lower extremity pain. She denies any current chest pain aside from pleuritic. She denies any current leg discomfort. She denies any falls or injuries. She has exogenous hormones, recent flights, surgeries, long drives. She does have a history chronic leukemia for which she does not take medication for. She will monitor closely. She denies any recent illnesses. Pain is described as sharp and pleuritic. General Date/Time Provider Initiated Documentation: 04/07/20 09:54 . Related Data Home Medications Medication Instructions Recorded Confirmed pravastatin 40 mg PO QPM #30 tab 11/02/14 04/07/20 metoprolol succinate 50 mg PO DAILY 02/16/19 04/07/20 aspirin 81 mg PO DAILY #0 tab 02/17/19 04/07/20 Previous Rx's Medication Instructions Recorded pravastatin 40 mg PO QPM #30 tab 11/02/14 aspirin 81 mg PO DAILY #0 tab 02/17/19 Allergies Allergy/AdvReac Type Severity Reaction Status Date / Time Sulfa (Sulfonamide Allergy Skin Rash Unverified 04/07/20 09:55 Antibiotics) General Stated Complaint: SOB SUSAN: 2 Review of Systems Narrative: Review of systems negative x7 aside from where indicated in HPI PFSH Medical History Chronic leukemia HTN (hypertension) Surgical History H/O hysterectomy for benign disease History of cholecystectomy Social History Smoking/Tobacco Use Status: Never Smoking risk assessment performed?: Yes Alcohol Intake: never Drug use: Never Substance use type: does not use Do you feel safe at home: Yes Do you feel safe in your relationship?: Yes Exam Const General: cooperative and no acute distress Chest Chest: normal inspection of the chest Chest/axillae images: 1. Mild tenderness with palpation, no crepitus Resp Effort & Inspection: normal respiratory effort Auscultation: clear to auscultation bilaterally Cardio Rate: regular rate Rhythm: regular rhythm GI Inspection: normal to inspection Auscultation: normal bowel sounds Skin General skin exam: no rashes or lesions noted Neuro General: patient alert, patient awake and patient oriented x3 Extrem Other: 1+ edema to bilateral lower extremities, mild tenderness to palpation to left lower extremity, distal pulses intact Course Vital Signs Vital signs: Vital Signs Temperature 36.5 C 04/07/20 09:47 Pulse 89 04/07/20 09:47 Respiratory Rate 16 04/07/20 09:47 Blood Pressure 176/112 H 04/07/20 09:47 Pulse Oximetry 97 04/07/20 09:47 Temperature 36.5 C 04/07/20 09:47 Temperature Source Skin 04/07/20 09:47 Pulse 89 04/07/20 09:47 Respiratory Rate 12 04/07/20 10:02 Respiratory Effort 04/07/20 10:02 Respiratory Depth Shallow 04/07/20 10:02 Blood Pressure 176/112 H 04/07/20 09:47 Pulse Oximetry 97 04/07/20 09:47 Oxygen Delivery Method Room Air 04/07/20 09:47 Oxygen Flow Rate 0 04/07/20 09:47 Pain Level 1 04/07/20 09:47 Comment 04/07/20 09:47 Lab/Test Results Lab/Test Results: Laboratory Tests Range/Units 04/07/20 04/07/20 09:58 09:58 WBC (4.4-10.8) 10^3/uL 26.84 H* RBC (3.93-5.22) 10^6/uL 4.89 Hgb (11.2-15.7) g/dL 14.8 Hct (36.0-46.0) % 44.9 MCV (80-95) fL 91.8 MCH (27.0-33.0) pg 30.3 MCHC (32.0-36.0) % 33.0 RDW (11.7-14.6) % 13.6 Plt Count (130-400) 10^3/uL 253 MPV (8.0-11.0) fL 10.6 Immature Gran % 0.2 Neutrophils % 20.7 Lymphocytes % 74.2 Monocytes % 3.7 Eosinophils % 0.8 Basophils % 0.4 Nucleated RBC % % 0 Absolute Neutrophils (1.2-6.7) 10^3/uL 5.56 Absolute Lymphocytes (1.2-3.4) 10^3/uL 19.92 H Absolute Monocytes (0.1-0.8) 10^3/uL 0.99 H Absolute Eosinophils (0.0-0.7) 10^3/uL 0.21 Absolute Basophils (0.0-0.2) 10^3/uL 0.11 RBC Morphology Normal Sodium (136-145) mmol/L 139 Potassium (3.5-5.1) mmol/L 3.7 Chloride (98-107) mmol/L 103 Carbon Dioxide (21.0-32.0) mmol/L 27.2 Anion Gap (3-11) mmol/L 8.8 BUN (7-18) mg/dL 7 Creatinine (0.55-1.02) mg/dL 0.8 Estimated GFR/1.73 m2 (mL/min/1.73m2) >= 60.00 Glucose (74-106) mg/dL 95 Calcium (8.5-10.1) mg/dL 9.8 Total Bilirubin (0.2-1.0) mg/dL 0.4 AST (15-37) U/L 13 L ALT (14-59) U/L 20 Alkaline Phosphatase (46-116) U/L 74 Troponin I (<0.06) ng/mL < 0.05 NT-Pro-B Natriuret Pep (<300) pg/mL 224 Total Protein (6.4-8.2) g/dL 7.6 Albumin (3.4-5.0) g/dL 3.7
[2020-04-07] MEDS: Omnipaque 350 MG/ML 100 ML BTL IJ (11:08)
[2020-04-07] MEDS: Normal Saline - Diluent 50 ML VIAL IV (11:08)
[2020-04-07 12:05] LABS: C-Reactive Protein 0.09 mg/dL (0.0-0.3)
[2020-04-07] MEDS: Enoxaparin 80 MG/0.8 ML SYR 75 MG SC (12:14)
[2020-04-07 12:42] LABS: Procalcitonin < 0.1 ng/mL
[2020-04-07 12:43] LABS: Source Nasopharynx
[2020-04-07 12:49] LABS: Prothrombin Time 9.7 sec (9.3-11.0)
[2020-04-07 13:24] LABS: COVID-19 PCR Negative (Negative); Influenza A PCR Negative (Negative); Influenza B PCR Negative (Negative); RSV PCR Negative (Negative)
--- NOTE | 2020-04-07 13:53 | HPE_ITS ---
Date of service: 04/07/20 Time of Service: 13:53 Assessment and Plan Assessment and plan (1) Pulmonary embolus, left: Start date: 04/07/20 Start time: 14:29 Status: Acute Assessment and plan: Found by CT. Initiated on Enoxaparin by ED. However per up to date. Patients with malignancy can be on a DOAC, apixaban is a safe medication in trials. She was switched to this medication per recommendation, 10 mg bid x 7 days then 5 mg. We will monitor overnight and make sure insurance covers DOAC Nucynta for pain IS to prevent pneumonia Possible discharge home in am (2) Leukocytosis: Start date: 04/07/20 Start time: 14:30 Status: Chronic Assessment and plan: This is baseline due to CLL. (3) HTN (hypertension): Start date: 04/07/20 Start time: 14:31 Status: Chronic Assessment and plan: Will continue her metoprolol and statin above case discussed with Dr. iPmentel who is in agreement. History of Present Illness History of Present Illness Chief Complaint: PE, Leukocytosis Narrative: 80 y.o female with PMH of CLL, HTN, PE, Hyperlipidemia and CVA presents to [facility] ED with c/o pain to her chest. She states that about a month ago she had LLE pain that started in her lower leg, advanced over time to her hip which she attributed to her car and driving, then to left chest. The pain to the left chest started a couple of days ago, however she states she did have SOB last night. Patient endorses left chest pain that started approx. around 10 pm, she rubbed CBD lotion on left chest and nipple then went to bed. Woke up approx 130 this am with continuing pain and SOB, went to her recliner in the LR and went back to Sleep. She then woke up this morning with continuing pain, prompting her to come to the ED. In the ED CT revealed IMPRESSION: 1. Pulmonary embolus to a branch of the pulmonary artery to the left upper lobe. No evidence of right heart strain. 2. No evidence of aortic dissection or aneurysm. 3. Bilateral pulmonary opacities which may represent atelectasis, scarring or pneumonia. Please correlate clinically. 4. Findings were discussed with the emergency department on the date of the examination. Leukocytosis of 26.84, which appears to be near baseline for patient, otherwise labs unremarkable, she was asked to be admitted for further management. She is admitted to [facility] with telemetry for overnight obs. DOAC initiated. She states no pain unless taking deep breaths. Will order u/s as LLE is swollen and red with lump. 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) H/O thyroid nodule (12/29/14) History of pulmonary embolus during HTN (hypertension) Surgical History H/O hysterectomy for benign disease History of cholecystectomy Social History Smoking/Tobacco Use Status: Never Smoking risk assessment performed?: Yes Alcohol Intake: never Drug use: Never Substance use type: does not use Do you feel safe at home: Yes Do you feel safe in your relationship?: Yes Meds Home Medications and Allergies Home Medications Medication Instructions Recorded Confirmed Type pravastatin 40 mg PO QPM #30 tab 11/02/14 04/07/20 Rx metoprolol succinate 50 mg PO DAILY 02/16/19 04/07/20 History aspirin 81 mg PO DAILY #0 tab 02/17/19 04/07/20 Rx Allergies Allergy/AdvReac Type Severity Reaction Status Date / Time Sulfa (Sulfonamide Allergy Skin Rash Unverified 04/07/20 09:55 Antibiotics) Exam Const General: cooperative, comfortable, no acute distress, frail appearing and ill appearing chronically Nutritional Appearance: obese Orientation: alert, awake and oriented x3 Neck Neck: full ROM, no lymphadenopathy and no JVD Lymphatic: no lymphedema noted Chest Chest: normal inspection of the chest Resp Effort & Inspection: normal respiratory effort Auscultation: clear to auscultation bilaterally Cardio Jugular venous pressure: no JVD Rate: regular rate Rhythm: regular rhythm Heart Sounds: S1 normal and S2 normal GI Inspection: normal to inspection Palpation: soft and no hepatosplenomegaly Auscultation: normal bowel sounds General: deferred Skin General skin exam: erythema (LLE) and other (pale) Neuro General: patient alert, patient awake and patient oriented x3 Cognition: normal cognition Extrem General: full ROM, clubbing, cyanosis or edema noted and no pedal edema Right upper extremity: normal to inspection Left upper extremity: normal to inspection Right lower extremity: normal to inspection Other: LLE with firm erythemic tender warm calf Psych Appearance: grossly normal Mental Status: mental status grossly normal Speech and Movement: speech and movement normal Mood: congruent mood Affect: normal affect Attitude: cooperative Thought Content: normal Results Labs Result diagrams: 04/07/20 09:58 04/07/20 09:58 Labs: Laboratory Results - last 24 hr 04/07/20 04/07/20 04/07/20 09:58 09:58 09:58 WBC 26.84 H* RBC 4.89 Hgb 14.8 Hct 44.9 MCV 91.8 MCH 30.3 MCHC 33.0 RDW 13.6 Plt Count 253 MPV 10.6 Immature Gran % 0.2 Neutrophils % 20.7 Lymphocytes % 74.2 Monocytes % 3.7 Eosinophils % 0.8 Basophils % 0.4 Nucleated RBC % 0 Absolute Neutrophils 5.56 Absolute Lymphocytes 19.92 H Absolute Monocytes 0.99 H Absolute Eosinophils 0.21 Absolute Basophils 0.11 RBC Morphology Normal PT INR APTT Sodium 139 Potassium 3.7 Chloride 103 Carbon Dioxide 27.2 Anion Gap 8.8 BUN 7 Creatinine 0.8 Estimated GFR/1.73 m2 >= 60.00 Glucose 95 Calcium 9.8 Total Bilirubin 0.4 AST 13 L ALT 20 Alkaline Phosphatase 74 Troponin I < 0.05 C-Reactive Protein 0.09 NT-Pro-B Natriuret Pep 224 Total Protein 7.6 Albumin 3.7 Procalcitonin COVID-19 Source SARS-CoV-2 (PCR) Influenza Type A (PCR) Influenza Type B (PCR) RSV (PCR) 04/07/20 04/07/20 04/07/20 09:58 09:58 12:35 WBC RBC Hgb Hct MCV MCH MCHC RDW Plt Count MPV Immature Gran % Neutrophils % Lymphocytes % Monocytes % Eosinophils % Basophils % Nucleated RBC % Absolute Neutrophils Absolute Lymphocytes Absolute Monocytes Absolute Eosinophils Absolute Basophils RBC Morphology PT 9.7 INR 1.0 APTT 23.0 Sodium Potassium Chloride Carbon Dioxide Anion Gap BUN Creatinine Estimated GFR/1.73 m2 Glucose Calcium Total Bilirubin AST ALT Alkaline Phosphatase Troponin I C-Reactive Protein NT-Pro-B Natriuret Pep Total Protein Albumin Procalcitonin < 0.1 COVID-19 Source Nasopharynx SARS-CoV-2 (PCR) Negative Influenza Type A (PCR) Negative Influenza Type B (PCR) Negative RSV (PCR) Negative Last Vital Signs Temp 36.7 C 04/07/20 12:26 Pulse 89 04/07/20 13:14 Resp 14 04/07/20 12:26 BP 120/68 04/07/20 12:26 Pulse Ox 97 04/07/20 12:26 COVID-19 Screening Have you, or household traveled for leisure in last 14 days?: No Had IN PERSON contact w/suspected or confirmed C-19 person: No
[2020-04-07] MEDS: Metoprolol CR 50 MG TABCR PO (19:30)
[2020-04-07] MEDS: Pravastatin 40 MG TAB PO (19:30)
[2020-04-07] MEDS: Apixaban 5 MG TAB 10 MG PO (19:30)
[2020-04-08 04:00] VITALS: BP 104/66; PULSE 71; RESP 16; TEMP 36.6; O2SAT 97
[2020-04-08 06:47] LABS: Abs Immature Grans 0.04 10^3/uL (0.0-0.06); Absolute Basophil Count 0.11 10^3/uL (0.0-0.2); Basophils % 0.4; Eosinophils % 1.4; HCT 40.2 % (36.0-46.0); HGB 13.3 g/dL (11.2-15.7); Immature Grans % 0.2; Lymphocytes % 80.2; MCH 29.9 pg (27.0-33.0); MCHC 33.1 % (32.0-36.0); MCV 90.3 fL (80-95); MPV 10.5 fL (8.0-11.0); Monocytes % 3.2; Neutrophils % 14.6; Nucleated RBC 0 %; Platelet Count 236 10^3/uL (130-400); RBC 4.45 10^6/uL (3.93-5.22); RDW 13.9 % (11.7-14.6); RDW-SD 45.6 fL
[2020-04-08 06:59] LABS: Anion Gap 9.3 mmol/L (3-11); BUN 10 mg/dL (7-18); CO2 26.7 mmol/L (21.0-32.0); CREATININE 0.8 mg/dL (0.55-1.02); Calcium 9.3 mg/dL (8.5-10.1); Chloride 105 mmol/L (98-107); Glucose 95 mg/dL (74-106); Magnesium 2.2 mg/dL (1.8-2.4); Potassium 3.8 mmol/L (3.5-5.1); Sodium 141 mmol/L (136-145)
[2020-04-08 07:05] LABS: Absolute Eosinophil Count 0.37 10^3/uL (0.0-0.7); Absolute Lymphocyte Count 21.32 10^3/uL (1.2-3.4); Absolute Monocyte Count 0.85 10^3/uL (0.1-0.8); Absolute Neutrophil Count 3.88 10^3/uL (1.2-6.7)
[2020-04-08 07:15] LABS: Diff Comment Agrees w/ Instrument; RBC Morphology Normal; WBC 26.58 10^3/uL (4.4-10.8)
[2020-04-08 07:21] VITALS: PULSE 63
[2020-04-08 07:49] VITALS: BP 116/72; PULSE 63; RESP 18; TEMP 37.1; O2SAT 93
[2020-04-08] MEDS: Aspirin 81 MG CHEW PO (08:25)
[2020-04-08] MEDS: Apixaban 5 MG TAB 10 MG PO (08:25)
--- NOTE | 2020-04-08 09:28 | INITIAL_ITS ---
- If Service Date Differs Date of service: 04/08/20 Time of Service: 09:28 Care Management Initial Assess REASON FOR HOSPITALIZATION:: PE, bilateral infiltrates. 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 History of pulmonary embolus during , and HTN (hypertension). Surgical History: H/O hysterectomy for benign disease and History of cholecystectomy. PREVIOUS FUNCTIONAL STATUS/SOCIAL/FAMILY SUPPORTS:: Any and her live in their own home in [place], [place]. Their 3 sons are described as family supports, though only one of them lives locally. Any has been retired since 2004. 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 Any now spends her time caring for her home and knitting mittens and hats for the [employer]. Shaneka is independent with her ADLs at baseline. CURRENT FUNCTIONAL STATUS:: Shaneka is sitting in a chair when CM comes to meet with her. She is pleasant and easily engages in conversation. She reports she is feeling better and is looking forward to returning home. CM will continue to follow. ADVANCE DIRECTIVES:: On file; Turner Gasca Sr., , is Health Care Agent, and Diogenes Gasca, son, is Alternate Agent. Has patient been provided with info about the portal/API?: Yes Did the patient sign up for the portal?: Yes CODE STATUS:: Full Code INSURANCE COVERAGE / FINANCIAL ISSUES:: [employer] and Medicare. CURRENT HOME/COMMUNITY SERVICES/EQUIPMENT:: None. PRIMARY CARE PHYSICIAN:: Concepcion Vitale APRN. POTENTIAL DISCHARGE NEEDS:: Follow up appointment with PCP. PATIENT/FAMILY EDUCATION NEEDS:: Discharge instructions, limitations, follow up plan of care including Ask Me Three and self management. ANTICIPATED BARRIERS TO DISCHARGE:: None. TRANSPORTATION:: Via private vehicle with family. PLAN:: Anticipate Any will discharge home when medically cleared by provider. She will follow up with her PCP and discharge plan of care as directed. She will be driven home via private vehicle by her son, Abner, when ready. CM will continue to support patient and discharge planning needs.
[2020-04-08 10:08] VITALS: PULSE 106; PULSE 72; PULSE 74; RESP 16; RESP 20; O2SAT 92; O2SAT 94; O2SAT 95
--- NOTE | 2020-04-08 10:52 | W.PM.DS.N ---
Date of service: 04/08/20 Time of Service: 10:52 DS: Diagnosis Discharge Diagnosis (1) Pulmonary embolus, left: Start date: 04/08/20 Start time: 10:52 Status: Acute Asessment and Plan: Found by CT. Initiated on Enoxaparin in the ED, however she was transitioned to Apixaban on admission as this was found to be effective in malignancy on uptodate. She has had no CP or SOB. Telemetry revealed SB-SR up to 60's. Exercise oximetry with 95% and increased oxygen level increasing as patient ambulating. She endorsed no SOB. She is able to take deeper inspiratory breaths today without any pain. She is to continue IS and we spoke about her continuing this at home. (2) Leukocytosis: Start date: 04/08/20 Start time: 11:00 Status: Chronic Asessment and Plan: She is at her baseline. (3) HTN (hypertension): Start date: 04/08/20 Start time: 11:00 Status: Chronic Asessment and Plan: Continue home regimen. above case discussed with Dr. Cadena. Discharge Plan Disposition Patient Disposition: HOME Condition: Improving Discharge Details Reason For Visit: PE,BILATERAL INFILTRATES Admit Date/Time: 04/07/20 11:52 Admit Provider: Bud Pimentel Attending Provider: Bud Pimentel Primary Care Provider: Concepcion Vitale Hospital Course Hospital Course: 80 y.o female with PMH of CLL, HTN, PE, Hyperlipidemia and CVA presents to [facility] ED with c/o pain to her chest. She states that about a month ago she had LLE pain that started in her lower leg, advanced over time to her hip which she attributed to her car and driving, then to left chest. The pain to the left chest started a couple of days ago, however she states she did have SOB the night prior to admission. Patient endorses left chest pain that started approx. around 10 pm, she rubbed CBD lotion on left chest and nipple then went to bed. Woke up approx 130 this in the morning with continuing pain and SOB, went to her recliner in the LR and went back to Sleep. She then woke up morning of admission with continuing pain, prompting her to come to the ED. In the ED CT revealed IMPRESSION: 1. Pulmonary embolus to a branch of the pulmonary artery to the left upper lobe. No evidence of right heart strain. 2. No evidence of aortic dissection or aneurysm. 3. Bilateral pulmonary opacities which may represent atelectasis, scarring or pneumonia. Please correlate clinically. 4. Findings were discussed with the emergency department on the date of the examination. Leukocytosis of 26.84, which appears to be near baseline for patient, otherwise labs unremarkable, she was asked to be admitted for further management. She was admitted to [facility] with telemetry for overnight obs. DOAC initiated. She had no pain unless taking deep breaths. Today she is feeling great. U/s of LLE ordered was negative for DVT. She does have a left swollen reddened spot on her calf. Exercise oximetry she had no SOB, her oxygen saturation continued started at 95% and increased as she ambulated. HR never elevated above 80's. She feels great. She is able to take deeper breaths today with out pain. She will need to follow up with up with Oncology in 1 week. Home Meds and New Rx's Prescriptions: New Eliquis 5 mg Tablet 10 mg PO BID Qty: 12 RF: 0 Eliquis 5 mg tablet 5 mg PO BID Qty: 30 RF: 0 Continued pravastatin 40 MG tablet 40 mg PO QPM Qty: 30 RF: 0 metoprolol succinate 50 mg Tablet Extended Release 24 Hr 50 mg PO DAILY RF: 0 aspirin 81 mg Tablet,Chewable 81 mg PO DAILY Qty: 0 RF: 0 Discharge Instructions Instructions: Pulmonary Embolism (DC) Additional Instructions: Continue to use Incentive spirtormeter Take tylenol for pain Continue apixaban 10 mg for 12 more doses then switch to 5 mg twice a day for as long as your oncologist recommends Follow up with oncology in 1 week Stand Alone Forms: Nursing Discharge Form Referrals: Marvin Griffiths [Other] (Please Call to make a follow up appointment for 1 week. ) Activity:: Activity as Tolerated Equipment/Supplies:: No Equipment Needed Diet:: As Tolerated Discharge Orders Discharge Orders: Discharge Order (Routine); Ordered 04/08/20 Ordered By: Sarah Chaidez DS: Summary Time Spent with Patient providing and/or coordinating discharge services: Greater than 30 minutes (approx 40 mins spent on discharging patient) Status at Discharge Functional status at discharge: independent ambulation Overall status at discharge: patient is progressing back to baseline Mental Status: mental status grossly normal Speech and Movement: speech and movement normal Mood: congruent mood Affect: normal affect Exam Const General: cooperative, comfortable, no acute distress, frail appearing and ill appearing chronically Nutritional Appearance: obese Orientation: alert, awake and oriented x3 Neck Neck: full ROM, no lymphadenopathy and no JVD Lymphatic: no lymphedema noted Chest Chest: normal inspection of the chest Resp Effort & Inspection: normal respiratory effort Auscultation: clear to auscultation bilaterally Cardio Jugular venous pressure: no JVD Rate: regular rate Rhythm: regular rhythm Heart Sounds: S1 normal and S2 normal GI Inspection: normal to inspection Palpation: soft and no hepatosplenomegaly Auscultation: normal bowel sounds General: deferred Skin General skin exam: erythema (LLE) and other (pale) Neuro General: patient alert, patient awake and patient oriented x3 Cognition: normal cognition Extrem General: full ROM, clubbing, cyanosis or edema noted and no pedal edema Right upper extremity: normal to inspection Left upper extremity: normal to inspection Right lower extremity: normal to inspection Psych Appearance: grossly normal Mental Status: mental status grossly normal Speech and Movement: speech and movement normal Mood: congruent mood Affect: normal affect Attitude: cooperative Thought Content: normal DS: Data Vitals/I&O Vitals and I&O: Vital Signs Temperature 37.1 C 04/08/20 07:49 Temperature Source Temporal Artery Scan 04/08/20 07:49 Pulse 63 04/08/20 07:49 Pulse Rhythm Regular 04/08/20 04:00 Pulse 84 04/07/20 12:20 Respiratory Rate 18 04/08/20 07:49 Respiratory Effort 04/08/20 04:00 Respiratory Depth Normal 04/08/20 04:00 Respiratory Pattern Normal 04/08/20 04:00 Blood Pressure 116/72 04/08/20 07:49 Blood Pressure Mean 79 04/07/20 12:15 Pulse Oximetry 93 04/08/20 07:49 Oxygen Delivery Method Room Air 04/08/20 07:49 Oxygen Flow Rate 0 04/08/20 07:49 Pain Level 0 04/08/20 07:49 Comment 04/07/20 09:47 Intake & Output 04/07/20 04/07/20 04/08/20 11:59 23:59 11:59 Intake Total 240 / 240 250 / 250 Output Total 750 / 750 1400 / 1400 Balance -510 / -510 -1150 / -1150 Weight 75.1 kg Intake: Oral 240 / 240 250 / 250 Output: Urine 750 / 750 1400 / 1400 Other: Urine Color Pale Yellow Yellow Urine Appearance Clear Clear Urine Odor None Normal Comment pt voids independently in the bathroom FOUND WHEN PT GOT UP TO GO TO BR. PT STATED IT WAS FROM 3 PREV VOIDS. PT UP FOR 1ST TIME ON NOC SHIFT. Voiding Methods Toilet Toilet Data Completed and Pending Completed studies during hospitalization [Text1]: Exam(s) a US:US lower extremity venous LT EXAM: US LOWER EXTREMITY VENOUS LT CLINICAL HISTORY: red, swollen, DVT TECHNIQUE: Left lower extremity venous ultrasound performed using grayscale, color-flow, and spectral Doppler analysis. COMPARISON: No exams were available for comparison FINDINGS: The left common femoral, femoral and popliteal veins demonstrate normal compressibility, augmentation, and color Doppler. The posterior tibial veins are patent. The saphenofemoral junction is unremarkable. There is no evidence of a Argueta cyst. The soft tissues are unremarkable. IMPRESSION: No DVT. Exam(s) a CT:CT chest PE CTA EXAM: CT CHEST PE CTA CLINICAL HISTORY: hx of PE< left chest pain and sob. TECHNIQUE: Imaging Protocol: Axial CT angiography was performed with multi-slice acquisition and multi-planar and/or 3D reconstructions. CONTRAST MATERIAL: Intravenous: Omnipaque 350 Contrast volume:68 mL COMPARISON: No exams were available for comparison FINDINGS: Tracheobronchial tree: Patent where visualized. Pulmonary parenchyma: There are infiltrates seen in the lower lobes, right middle lobe and left lingula. This may represent atelectasis, pneumonia or scarring. Please correlate clinically. No pulmonary nodules are seen. Pulmonary Arteries: There is a filling defects seen in the vessel to the left upper lobe consistent with a pulmonary embolus. Mediastinum and Ludivina: No dominant adenopathy or fluid collection. Visualized thyroid gland: There may be a solid nodule at the inferior pole of the left lobe of the thyroid gland. Nonemergent thyroid ultrasound may be obtained for further evaluation. Pleura: No effusion or pneumothorax. Heart: The heart is not dilated. Mild coronary artery calcification. No evidence of right heart strain. No pericardial effusion. Aorta: Thoracic aorta non-dilated. Atherosclerosis. No evidence of dissection. Upper abdomen: Unremarkable. Soft tissues: Unremarkable. Bones: Degenerative changes. IMPRESSION: 1. Pulmonary embolus to a branch of the pulmonary artery to the left upper lobe. No evidence of right heart strain. 2. No evidence of aortic dissection or aneurysm. 3. Bilateral pulmonary opacities which may represent atelectasis, scarring or pneumonia. Please correlate clinically. 4. Findings were discussed with the emergency department on the date of the examination. Labs on day of discharge: Labs from last 24 hours 04/08/20 04/08/20 04/07/20 06:23 06:23 12:35 WBC 26.58 H* RBC 4.45 Hgb 13.3 Hct 40.2 MCV 90.3 MCH 29.9 MCHC 33.1 RDW 13.9 Plt Count 236 MPV 10.5 Immature Gran % 0.2 Neutrophils % 14.6 Lymphocytes % 80.2 Monocytes % 3.2 Eosinophils % 1.4 Basophils % 0.4 Nucleated RBC % 0 Absolute Neutrophils 3.88 Absolute Lymphocytes 21.32 H Absolute Monocytes 0.85 H Absolute Eosinophils 0.37 Absolute Basophils 0.11 RBC Morphology Normal PT INR APTT Sodium 141 Potassium 3.8 Chloride 105 Carbon Dioxide 26.7 Anion Gap 9.3 BUN 10 Creatinine 0.8 Estimated GFR/1.73 m2 >= 60.00 Glucose 95 Calcium 9.3 Magnesium 2.2 C-Reactive Protein Procalcitonin COVID-19 Source Nasopharynx SARS-CoV-2 (PCR) Negative Influenza Type A (PCR) Negative Influenza Type B (PCR) Negative RSV (PCR) Negative 04/07/20 04/07/20 04/07/20 09:58 09:58 09:58 WBC RBC Hgb Hct MCV MCH MCHC RDW Plt Count MPV Immature Gran % Neutrophils % Lymphocytes % Monocytes % Eosinophils % Basophils % Nucleated RBC % Absolute Neutrophils Absolute Lymphocytes Absolute Monocytes Absolute Eosinophils Absolute Basophils RBC Morphology PT 9.7 INR 1.0 APTT 23.0 Sodium Potassium Chloride Carbon Dioxide Anion Gap BUN Creatinine Estimated GFR/1.73 m2 Glucose Calcium Magnesium C-Reactive Protein 0.09 Procalcitonin < 0.1 COVID-19 Source SARS-CoV-2 (PCR) Influenza Type A (PCR) Influenza Type B (PCR) RSV (PCR) [facility] Medical History (Updated 04/07/20 @ 14:31 by Sarah Chaidez NP) Chronic leukemia Dysphagia as late effect of cerebrovascular accident (CVA) (12/29/14) H/O thyroid nodule (12/29/14) History of pulmonary embolus during HTN (hypertension) Surgical History H/O hysterectomy for benign disease History of cholecystectomy Social History Smoking/Tobacco Use Status: Never Smoking risk assessment performed?: Yes Alcohol Intake: never Drug use: Never Substance use type: does not use Do you feel safe at home: Yes Do you feel safe in your relationship?: Yes
[2020-04-08 11:19] VITALS: BP 109/70; PULSE 79; RESP 17; TEMP 37; O2SAT 95
--- NOTE | 2020-04-08 14:20 | PDOC.CMDIS ---
- If Service Date Differs Date of service: 04/08/20 Time of Service: 14:21 LACE Index Scoring Tool - Questions: Length of Stay (in days): 1 Acuity (Admit via E.D.?): Yes E.D. Visits: 1 - Answers: Total Score: 5 Risk of Readmission: Low Risk Care Management Discharge Reason for Hospitalization: PE, bilateral infiltrates. Discharge Plan: Any is discharged home with no new services. She will follow up with her PCP, oncologist and discharge plan of care as directed. Her son, Abner, is driving her home via private vehicle. Patient/Family Education Needs: Discharge instructions, limitations, follow up plan of care including Ask Me Three and self management.
== END 2020-04-08 13:54 | disposition home or self-care (01) ==
LOC: ER 12:20 → MS 12:42
PROVIDERS: Nurse Practitioner Family; Admitting Provider Family Medicine; Emergency Provider Physician Assistant; PCP Nurse Practitioner; Visit Provider Family Medicine
DX: I26.99 Other pulmonary embolism without acute cor pulmonale (principal); C91.10 Chronic lymphocytic leukemia of B-cell type not having achieved remission; Z86.711 Personal history of pulmonary embolism; I69.391 Dysphagia following cerebral infarction; R13.10 Dysphagia, unspecified; D72.829 Elevated white blood cell count, unspecified; I10 Essential (primary) hypertension; E78.5 Hyperlipidemia, unspecified
CPT/HCPCS: 36415; 71275; 80048; 80053; 84145; 87637; 93005; 94618; 96372; 99220; 99239; 99285; 83735; 83880; 84484; 85025; 85610; 85730; 86140; 93010; 93971; 99217; G0378; J1650; J3490

== ENCOUNTER 2020-04-26 02:54 | Outpatient (CLI) | payer MEDICARE, OTHER, SELFPAY ==
[2020-04-26 10:46] LABS: Abs Immature Grans 0.05 10^3/uL (0.0-0.06); HCT 43.2 % (36.0-46.0); HGB 14.2 g/dL (11.2-15.7); MCHC 32.9 % (32.0-36.0); MCV 91.3 fL (80-95); MPV 10.1 fL (8.0-11.0); Nucleated RBC 0 %; Platelet Count 246 10^3/uL (130-400); RBC 4.73 10^6/uL (3.93-5.22); RDW 13.8 % (11.7-14.6); RDW-SD 46.6 fL; WBC 23.85 10^3/uL (4.4-10.8)
[2020-04-26 11:05] LABS: Absolute Eosinophil Count 0.24 10^3/uL (0.0-0.7); Absolute Monocyte Count 0.72 10^3/uL (0.1-0.8); Diff Comment Manual Differential
[2020-04-26 11:06] LABS: Poikilocytes 1+
== END 2020-04-26 02:55 | disposition home or self-care (01) ==
LOC: LBO 02:55
PROVIDERS: PCP Nurse Practitioner; Visit Provider Internal Medicine
DX: C91.10 Chronic lymphocytic leukemia of B-cell type not having achieved remission (principal)
CPT/HCPCS: 36415; 85025

== ENCOUNTER 2020-06-21 15:23 | Outpatient (REF) | payer MEDICARE, OTHER, SELFPAY ==
--- NOTE | 2020-06-21 15:01 | SKI_PTH ---
PATIENT: Any Gasca LOC: [facility] U#:[id number] AGE/SX: 80/F ROOM: RE06/21/[address]: Azar Cardona DO : 1940 BED: DIS: 06/21/2020 SPEC #: [id number] RECD: 06/21/20 18:01 STATUS: KIMBERLI REEvelina #: [id number] NICKI: 06/21/20 15:[address]: Azar Cardona DEPT: Surgical Specimen RECD BY: Franca Torres ENTERED: 06/21/20 18:01 SP TYPE: ESTEBAN KABA DR: Concepcion Vitale Tissues: 1 - SKIN BIOPSY(SHAVE/PUNCH) Procedures: SKIN LEVEL 4 Comments: [id number]
== END 2020-06-21 15:24 | disposition home or self-care (01) ==
LOC: LBN 15:23
PROVIDERS: PCP Nurse Practitioner; Visit Provider Otolaryngology Otolaryngology/Facial Plastic Surgery
DX: L57.0 Actinic keratosis (principal)
CPT/HCPCS: 88305

== ENCOUNTER 2020-07-17 11:50 | Outpatient (REF) | payer MEDICARE, OTHER, SELFPAY ==
--- NOTE | 2020-07-17 10:45 | SKI_PTH ---
PATIENT: Any Gasca LOC: [facility] U#:[id number] AGE/SX: 80/F ROOM: RE07/17/[address]: TOYA Dong : 1940 BED: DIS: 07/17/2020 SPEC #: [id number] RECD: 07/17/20 17:43 STATUS: KIMBERLI REEvelina #: [id number] NICKI: 07/17/20 10:[address]: Hugo Lawrence DEPT: Surgical Specimen RECD BY: Franca Torres ENTERED: 07/17/20 17:45 SP TYPE: ESTEBAN KABA DR: Concepcion Vitale Tissues: 1 - SKIN BIOPSY(SHAVE/PUNCH) Procedures: SKIN LEVEL 4 Comments: [id number]
== END 2020-07-17 11:51 | disposition home or self-care (01) ==
LOC: NCHCN 11:50
PROVIDERS: PCP Nurse Practitioner; Visit Provider Physician Assistant
DX: L57.0 Actinic keratosis (principal)
CPT/HCPCS: 88305

== ENCOUNTER 2020-10-04 10:16 | Emergency (ER) | payer MEDICARE, OTHER, SELFPAY ==
[2020-10-04 10:25] VITALS: BP 147/70; PULSE 80; TEMP 37.2; O2SAT 95
--- NOTE | 2020-10-04 10:30 | DI.RAD_ITS ---
Exam(s) XR WRIST LT COMPLETE EXAM: XR WRIST LT COMPLETE CLINICAL HISTORY: left wrist pain and swelling. TECHNIQUE: 2D digital imaging was performed. COMPARISON: No exams were available for comparison FINDINGS: There is no evidence of fracture nor dislocation nor significant ulnar variance. 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 No degenerative changes in the pro ximal carpal row. No erosions. Bone density is age-appropriate. IMPRESSION: DATA REPOSITORY: RADIATION DOSE DELIVERED:
--- NOTE | 2020-10-04 11:07 | ED.GENADUL_ITS ---
Discharge Plan Disposition Patient Disposition: HOME Condition: Good Discharge Details Clinical Impression: Muscle strain of wrist Primary Care Provider: Concepcion Vitale ED Provider: Franca Serrano Home Meds and New Rx's Prescriptions: New diclofenac sodium 3 % gel 1 applic topical BID Qty: 100 RF: 0 No Action pravastatin 40 MG tablet 40 mg PO QPM Qty: 30 RF: 0 metoprolol succinate 50 mg Tablet Extended Release 24 Hr 50 mg PO DAILY RF: 0 aspirin 81 mg Tablet,Chewable 81 mg PO DAILY Qty: 0 RF: 0 Eliquis 5 mg tablet See Rx Instructions .ROUTE .COMPLEX Qty: 72 RF: 0 Discharge Instructions Instructions: Muscle Strain (ED) Additional Instructions: Take Tylenol 650 mg every 6 hours, ice, diclofenac gel as prescribed Follow-up with orthopedics with persistent pain greater than 1 week Return earlier should you have new or worsening complaints including redness, strength or sensation change, or with any new or progressing symptoms Medical Decision Making Patient is afebrile and nontoxic, she is placed in a splint She will need repeat x-ray in 1 week with persistent pain, recheck with primary care physician Diclofenac gel, Tylenol every 6 hours recommended No evidence of septic arthritis, early return precautions discussed and patient expressed understanding, ambulatory with steady gait, discharged home No evidence of large hematoma Medical Records Medical records reviewed: Yes I reviewed the patient's medical records. HPI General Mode of arrival: ambulatory . Date/Time Provider Initiated Documentation: 10/04/20 10:30 . Limitations to Documentation: no limitations . Information obtained by: patient . HPI Narrative: This yanely 80-year-old female presents with left wrist pain. She states that she closed the car door abruptly and felt a pulling sensation in wound to her left wrist. States she started with pain shortly thereafter and it has been worsening and now she has swelling. She denies any fever or chills. She states the pain is exacerbated with movement. She attempted some Tylenol and CBD oil without improvement in her symptoms. She denies any chest pain or shortness of breath. She denies any dizziness or weakness. Related Data Home Medications Medication Instructions Recorded Confirmed pravastatin 40 mg PO QPM #30 tab 11/02/14 10/04/20 metoprolol succinate 50 mg PO DAILY 02/16/19 10/04/20 aspirin 81 mg PO DAILY #0 tab 02/17/19 10/04/20 apixaban [Eliquis] See Rx Instructions .ROUTE 04/08/20 10/04/20 .COMPLEX #72 tab diclofenac sodium 1 applic TOPICAL BID #100 g 10/04/20 Previous Rx's Medication Instructions Recorded pravastatin 40 mg PO QPM #30 tab 11/02/14 aspirin 81 mg PO DAILY #0 tab 02/17/19 apixaban [Eliquis] See Rx Instructions .ROUTE 04/08/20 .COMPLEX #72 tab diclofenac sodium 1 applic TOPICAL BID #100 g 10/04/20 Allergies Allergy/AdvReac Type Severity Reaction Status Date / Time Sulfa (Sulfonamide Allergy Skin Rash Unverified 10/04/20 10:28 Antibiotics) General Stated Complaint: Orthopedic SUSAN: 4 Review of Systems All systems reviewed & are unremarkable except as noted in HPI and below PFSH Medical History (Updated 10/04/20 @ 11:16 by TOYA Hall) Chronic leukemia Dysphagia as late effect of cerebrovascular accident (CVA) (12/29/14) H/O thyroid nodule (12/29/14) History of pulmonary embolus during HTN (hypertension) Surgical History H/O hysterectomy for benign disease History of cholecystectomy Social History Smoking/Tobacco Use Status: Never Smoking risk assessment performed?: Yes Alcohol Intake: never Drug use: Never Substance use type: does not use Do you feel safe at home: Yes Do you feel safe in your relationship?: Yes Exam Const General: no acute distress Resp Effort & Inspection: normal respiratory effort Cardio Rate: regular rate Neuro General: patient alert and patient oriented x3 Extrem Elbow/forearm/wrist images: 1. Swelling and tenderness Radial pulses intact Other: Left wrist with swelling and tenderness over left radial aspect of wrist, no tenderness over ulnar, no crepitus, neurovascularly intact, no lymphangitis, no overlying erythema Able to move all fingers, capillary refill intact swelling Course Vital Signs Vital signs: Vital Signs Temperature 37.2 C 10/04/20 10:25 Pulse 80 10/04/20 10:25 Blood Pressure 147/70 H 10/04/20 10:25 Pulse Oximetry 95 10/04/20 10:25 Temperature 37.2 C 10/04/20 10:25 Temperature Source Temporal Artery Scan 10/04/20 10:25 Pulse 80 10/04/20 10:25 Respiratory Effort Non-Labored 10/04/20 10:26 Blood Pressure 147/70 H 10/04/20 10:25 Blood Pressure Position Sitting 10/04/20 10:25 Pulse Oximetry 95 10/04/20 10:25 Oxygen Delivery Method Room Air 10/04/20 10:25 Oxygen Flow Rate 0 10/04/20 10:25 Pain Level 5 10/04/20 10:27
== END 2020-10-04 11:27 | disposition home or self-care (01) ==
PROVIDERS: Emergency Provider Physician Assistant; PCP Nurse Practitioner
DX: S66.812A Strain of other specified muscles, fascia and tendons at wrist and hand level, left hand, initial encounter (principal); X50.1XXA Overexertion from prolonged static or awkward postures, initial encounter
CPT/HCPCS: 29125; 99283; 73110

== ENCOUNTER 2021-05-16 02:33 | Outpatient (CLI) | payer MEDICARE, OTHER, SELFPAY ==
[2021-05-16 09:20] LABS: HCT 43.7 % (36.0-46.0); MCH 29.6 pg (27.0-33.0); MCV 92.4 fL (80-95); MPV 10.3 fL (8.0-11.0); Platelet Count 265 10^3/uL (130-400); RBC 4.73 10^6/uL (3.93-5.22); RDW 13.7 % (11.7-14.6); RDW-SD 46.6 fL; WBC 23.81 10^3/uL (4.4-10.8)
[2021-05-16 10:49] LABS: ALT 23 U/L (14-59); AST 15 U/L (15-37); Albumin 3.8 g/dL (3.4-5.0); Alkaline Phosphatase 70 U/L (46-116); Anion Gap 9.1 mmol/L (3-11); BUN 7 mg/dL (7-18); Bilirubin, Total 0.4 mg/dL (0.2-1.0); CO2 26.9 mmol/L (21.0-32.0); CREATININE 0.8 mg/dL (0.55-1.02); Calcium 9.9 mg/dL (8.5-10.1); Calculated LDL 111 mg/dL (<100); Chloride 103 mmol/L (98-107); Cholesterol 198 mg/dL (<200); Glucose 86 mg/dL (74-106); HDL Cholesterol 62 mg/dL (40-60); Potassium 4.1 mmol/L (3.5-5.1); Sodium 139 mmol/L (136-145); Triglyceride 127 mg/dL (<150)
== END 2021-05-16 02:34 | disposition home or self-care (01) ==
LOC: LBO 02:34
PROVIDERS: PCP Nurse Practitioner; Visit Provider Physician Assistant Medical
DX: Z79.899 Other long term (current) drug therapy (principal); I48.91 Unspecified atrial fibrillation; E78.5 Hyperlipidemia, unspecified; Z79.01 Long term (current) use of anticoagulants
CPT/HCPCS: 36415; 80053; 80061; 85027

== ENCOUNTER 2021-11-29 19:11 | Outpatient (REF) | payer MEDICARE, OTHER, SELFPAY ==
[2021-11-29 14:52] LABS: Abs Immature Grans 0.04 10^3/uL (0.0-0.06); Absolute Basophil Count 0.09 10^3/uL (0.0-0.2); Absolute Eosinophil Count 0.18 10^3/uL (0.0-0.7); Basophils % 0.4; Eosinophils % 0.8; HCT 44.4 % (36.0-46.0); HGB 14.6 g/dL (11.2-15.7); Immature Grans % 0.2; MCH 30.2 pg (27.0-33.0); MCHC 32.9 % (32.0-36.0); MCV 92 fL (80-95); MPV 11.1 fL (8.0-11.0); Monocytes % 3.2; Neutrophils % 16.9; Platelet Count 233 10^3/uL (130-400); RBC 4.84 10^6/uL (3.93-5.22); RDW 14.4 % (11.7-14.6); RDW-SD 48.6 fL; WBC 22.93 10^3/uL (4.4-10.8)
[2021-11-29 15:04] LABS: Absolute Monocyte Count 0.73 10^3/uL (0.1-0.8); Absolute Neutrophil Count 3.88 10^3/uL (1.2-6.7)
[2021-11-29 15:14] LABS: ALT 26 U/L (14-59); AST 24 U/L (15-37); Albumin 3.9 g/dL (3.4-5.0); Alkaline Phosphatase 67 U/L (46-116); Anion Gap 7.5 mmol/L (3-11); BUN 11 mg/dL (7-18); Bilirubin, Total 0.4 mg/dL (0.2-1.0); CO2 27.5 mmol/L (21.0-32.0); CREATININE 0.7 mg/dL (0.55-1.02); Calcium 10.1 mg/dL (8.5-10.1); Chloride 105 mmol/L (98-107); Glucose 96 mg/dL (74-106); Potassium 4.2 mmol/L (3.5-5.1); Sodium 140 mmol/L (136-145); Total Protein 7.4 g/dL (6.4-8.2)
[2021-11-29 15:45] LABS: Lymphocytes % 78.5
[2021-11-29 15:47] LABS: Diff Comment Agrees w/ Instrument; RBC Morphology Normal
== END 2021-11-29 19:12 | disposition home or self-care (01) ==
LOC: NCHCN 19:11
PROVIDERS: PCP Nurse Practitioner Family; Visit Provider Nurse Practitioner Family
DX: C91.10 Chronic lymphocytic leukemia of B-cell type not having achieved remission (principal); I47.1 Supraventricular tachycardia; I63.9 Cerebral infarction, unspecified; E78.5 Hyperlipidemia, unspecified; Z71.89 Other specified counseling
CPT/HCPCS: 80053; 85025

== ENCOUNTER 2023-05-07 07:51 | Outpatient (CLI) | payer MEDICARE, OTHER, SELFPAY ==
--- NOTE | 2023-05-07 07:45 | RT.EKG_ITS ---
APPROVED REPORT Exam: Resting ECG Reason for Exam: PSVT Patient Location: O HR:78 bpm ECG Measurements Heart Rate 78 AXIS DE 172 P 19 QRSd 91 QRS -32 QT 417 T 8 QTc 476 Conclusion Sinus rhythm...normal P axis, V-rate 50- 99 Left axis deviation...QRS axis (-30,-90) Low voltage, precordial leads...precordial leads <1.0mV Consider anterior infarct...Q >30mS in V2-V5
== END 2023-05-07 07:52 | disposition home or self-care (01) ==
LOC: DI.CARD 07:51
PROVIDERS: PCP Nurse Practitioner Family; Visit Provider Internal Medicine Cardiovascular Disease
DX: I47.10 Supraventricular tachycardia, unspecified (principal)
CPT/HCPCS: 93010

== ENCOUNTER → 2023-05-07 08:36 | Outpatient (BNVA) | payer MEDICARE, OTHER, SELFPAY | PROVIDERS: PCP Nurse Practitioner Family; Referring Provider Nurse Practitioner Family; Visit Provider Internal Medicine Cardiovascular Disease | DX: I47.10 Supraventricular tachycardia, unspecified (principal) | CPT/HCPCS: 93005; 99214 ==

== ENCOUNTER 2024-01-02 12:23 | Outpatient (REF) | payer MEDICARE, OTHER, SELFPAY ==
--- NOTE | 2024-01-02 11:45 | SKI_PTH ---
PATIENT: Any Gasca LOC: [facility] U#:[id number] AGE/SX: 83/F ROOM: RE01/02/[address]: TOYA Dong : 1940 BED: DIS: 01/02/2024 SPEC #: [id number] RECD: 01/02/24 15:17 STATUS: KIMBERLI DEWITT #: [id number] NICKI: 01/02/24 11:[address]: Hugo Lawrence DEPT: Surgical Specimen RECD BY: Franca Torres ENTERED: 01/02/24 15:17 SP TYPE: ESTEBAN KABA DR: SHARI ADAMS, REGISTERED NURSE STEP DOWN Tissues: 1 - SKIN BIOPSY(SHAVE/PUNCH) Procedures: IMMUNOPEROXIDASE STAIN SKIN LEVEL 4 Comments: [id number]
== END 2024-01-02 12:24 | disposition home or self-care (01) ==
LOC: LBN 12:23
PROVIDERS: PCP Nurse Practitioner Family; Visit Provider Physician Assistant
DX: Z12.83 Encounter for screening for malignant neoplasm of skin (principal); D22.9 Melanocytic nevi, unspecified
CPT/HCPCS: 88305; 88361

== ENCOUNTER 2024-06-04 11:52 | Outpatient (REF) | payer MEDICARE, OTHER, SELFPAY ==
--- NOTE | 2024-06-04 11:40 | SKI_PTH ---
PATIENT: Any Gasca LOC: [facility] U#:[id number] AGE/SX: 84/F ROOM: RE06/04/[address]: TOYA Dong : 1940 BED: DIS: 06/04/2024 SPEC #: [id number] RECD: 06/04/24 17:03 STATUS: KIMBERLI REEvelina #: [id number] NICKI: 06/04/24 11:[address]: Hugo Lawrence DEPT: Surgical Specimen RECD BY: Franca Torres ENTERED: 06/04/24 17:04 SP TYPE: ESTEBAN KABA DR: SHARI ADAMS, INTERNET [employer]PLICATION DEVELOPER Tissues: 1 - SKIN BIOPSY(SHAVE/PUNCH) Procedures: SKIN LEVEL 4 Comments: [id number]
== END 2024-06-04 11:53 | disposition home or self-care (01) ==
LOC: LBN 11:52
PROVIDERS: PCP Nurse Practitioner Family; Visit Provider Physician Assistant
DX: D22.9 Melanocytic nevi, unspecified (principal)
CPT/HCPCS: 88305

== ENCOUNTER 2024-07-28 02:07 | Outpatient (CLI) | payer MEDICARE, OTHER, SELFPAY ==
[2024-07-28 10:01] LABS: Abs Immature Grans 0.03 10^3/uL (0.0-0.06); Absolute Lymphocyte Count 12.18 10^3/uL (1.2-3.4); Absolute Neutrophil Count 4.06 10^3/uL (1.2-6.7); Basophils % 0.5 %; Eosinophils % 1.1 %; HCT 43.4 % (36.0-46.0); HGB 14.4 g/dL (11.2-15.7); Immature Grans % 0.2 %; Lymphocytes % 69.5 %; MCH 30.4 pg (27.0-33.0); MCHC 33.2 % (32.0-36.0); MCV 92 fL (80-95); MPV 10.4 fL (8.0-11.0); Monocytes % 5.5 %; Neutrophils % 23.2 %; Platelet Count 245 10^3/uL (130-400); RBC 4.74 10^6/uL (3.93-5.22); RDW-SD 47.7 fL; WBC 17.52 10^3/uL (4.4-10.8)
[2024-07-28 10:03] LABS: Absolute Basophil Count 0.09 10^3/uL (0.0-0.2); Absolute Eosinophil Count 0.19 10^3/uL (0.0-0.7); Absolute Monocyte Count 0.96 10^3/uL (0.1-0.8)
[2024-07-28 10:23] LABS: ALT 25 U/L (14-59); AST 21 U/L (15-37); Albumin 3.7 g/dL (3.4-5.0); Alkaline Phosphatase 84 U/L (46-116); Anion Gap 6.6 mmol/L (3-11); BUN 11 mg/dL (7-18); Bilirubin, Total 0.4 mg/dL (0.2-1.0); CO2 29.4 mmol/L (21.0-32.0); CREATININE 0.8 mg/dL (0.55-1.02); Calcium 9.8 mg/dL (8.5-10.1); Chloride 104 mmol/L (98-107); Estimated GFR 72.16 (mL/min/1.73m2); Glucose 94 mg/dL (74-106); LDH 135 U/L (81-234); Potassium 4.1 mmol/L (3.5-5.1); Sodium 140 mmol/L (136-145); Total Protein 7.3 g/dL (6.4-8.2)
[2024-07-28 10:30] LABS: Diff Comment Diff Reviewed; RBC Morphology Normal
== END 2024-07-28 02:08 | disposition home or self-care (01) ==
PROVIDERS: PCP Nurse Practitioner Family; Visit Provider Internal Medicine Hematology & Oncology
DX: C91.10 Chronic lymphocytic leukemia of B-cell type not having achieved remission (principal)
CPT/HCPCS: 36415; 80053; 83615; 85025

== ENCOUNTER → 2024-11-03 12:41 | Outpatient (BNVA) | payer MEDICARE, OTHER, SELFPAY | PROVIDERS: PCP Nurse Practitioner Family; Referring Provider Nurse Practitioner Family; Visit Provider Internal Medicine Cardiovascular Disease | DX: I47.19 Other supraventricular tachycardia (principal) | CPT/HCPCS: 99213 ==

== ENCOUNTER 2024-11-27 10:17 | Outpatient (CLI) | payer MEDICARE, OTHER, SELFPAY ==
--- NOTE | 2024-11-27 10:15 | RT.EKG_ITS ---
APPROVED REPORT Exam: Resting ECG Reason for Exam: dizziness Patient Location: O HR:79 bpm ECG Measurements Heart Rate 79 AXIS MO 156 P 47 QRSd 94 QRS -28 QT 420 T 17 QTc 482 Conclusion Sinus rhythm...normal P axis, V-rate 50- 99 Abnormal R-wave progression, late transition...QRS area<0 in V5/V6 Left axis
== END 2024-11-27 10:18 | disposition home or self-care (01) ==
LOC: DI.CM 10:18
PROVIDERS: PCP Nurse Practitioner Family; Visit Provider Nurse Practitioner Family
DX: R42 Dizziness and giddiness (principal)
CPT/HCPCS: 93010

== ENCOUNTER 2024-12-02 08:08 | Emergency (ER) | payer MEDICARE, OTHER, SELFPAY ==
[2024-12-02 08:13] VITALS: BP 154/73; PULSE 87; RESP 18; TEMP 36.7; O2SAT 96
[2024-12-02] MEDS: Silver Nitrate Stick 2 EACH TP (08:27)
[2024-12-02 08:42] LABS: HCT 42.1 % (36.0-46.0); HGB 13.9 g/dL (11.2-15.7); MCH 30.4 pg (27.0-33.0); MCHC 33.0 % (32.0-36.0); MCV 92 fL (80-95); MPV 10.5 fL (8.0-11.0); Platelet Count 243 10^3/uL (130-400); RBC 4.57 10^6/uL (3.93-5.22); RDW 13.8 % (11.7-14.6); RDW-SD 46.7 fL; WBC 16.33 10^3/uL (4.4-10.8)
[2024-12-02 08:55] LABS: Anion Gap 9.4 mmol/L (3-11); BUN 7 mg/dL (7-18); CO2 29.6 mmol/L (21.0-32.0); Calcium 9.6 mg/dL (8.5-10.1); Chloride 103 mmol/L (98-107); Estimated GFR 72.16 (mL/min/1.73m2); Glucose 108 mg/dL (74-106); Potassium 4.0 mmol/L (3.5-5.1); Sodium 142 mmol/L (136-145)
[2024-12-02 09:17] LABS: Abs Immature Grans 0.00 10^3/uL (0.0-0.06); Immature Grans % 0.0 %; RBC Morphology Normal
[2024-12-02 09:54] VITALS: BP 119/60; PULSE 69; RESP 18; O2SAT 97
--- NOTE | 2024-12-03 17:10 | W.ED.GENAD ---
Discharge Plan Disposition Patient Disposition: Home Condition: Stable Discharge Details Clinical Impression: Epistaxis, recurrent Primary Care Provider: SHARI ADAMS ED Provider: Franca Serrano Home Meds and New Rx's Prescriptions: Continued multivitamin Tablet 1 tab PO DAILY Eliquis 5 mg tablet 5 mg PO BID omega-3 fatty acids 1,000 mg capsule 1,000 mg PO DAILY coenzyme Q10 [Co Q-10] 200 mg capsule 200 mg PO DAILY diclofenac sodium 1 % gel 2 g topical BID pravastatin 40 MG tablet 40 mg PO QPM Qty: 30 0RF metoprolol succinate 50 mg Tablet Extended Release 24 Hr 50 mg PO DAILY aspirin 81 mg Tablet,Chewable 81 mg PO DAILY Qty: 0 0RF diclofenac sodium 3 % gel 1 applic topical BID Qty: 100 0RF Discharge Instructions Instructions: Nosebleeds ED Additional Instructions: Use a humidifier in your room Coat your nostrils and septum at least twice a day with bacitracin, Neosporin, or Vaseline follow-up with ENT at your scheduled appointment Please return should you have recurrent bleeding or should any new concerns arise Referrals: SHARI ADAMS, CYCLE CONSULTANT [Primary Care Provider, Medicine] Leonardo Hendricks MD [ [facility] STAFF PHYSICIAN, ENT Surgical] Discharge Data Discharge Date/Time-TO BE ENTERED AT DEPARTURE: 12/02/24 09:56 HPI General Date/Time Provider Initiated Documentation: 12/02/24 08:12. HPI Narrative: this 84-year-old female presents with recurrent epistaxis over the course of the past month. She states its predominantly been from her left naris. She is on Eliquis at baseline. She denies any chest pain shortness of breath dizziness or weakness. She had an episode this morning that lasted approximately 20 minutes. She denies any bleeding from additional sites. She denies any trauma. Related Data Home Medications ?Medication ?Instructions ?Recorded ?Confirmed pravastatin 40 mg tablet 40 mg PO QPM #30 tabs 11/02/14 12/02/24 metoprolol succinate 50 mg 50 mg PO DAILY 02/16/19 12/02/24 tablet,extended release 24 hr aspirin 81 mg chewable tablet 81 mg PO DAILY #0 tabs 02/17/19 12/02/24 diclofenac sodium 3 % topical gel 1 applic topical BID #100 grams 10/04/20 12/02/24 multivitamin 1 tab PO DAILY 03/16/21 12/02/24 apixaban 5 mg tablet (Eliquis) 5 mg PO BID 12/25/22 12/02/24 omega-3 fatty acids 1,000 mg 1,000 mg PO DAILY 12/25/22 12/02/24 capsule coenzyme Q10 200 mg capsule (Co 200 mg PO DAILY 11/29/24 12/02/24 Q-10) diclofenac sodium 1 % topical gel 2 g topical BID 11/29/24 12/02/24 Previous Rx's ?Medication ?Instructions ?Recorded pravastatin 40 mg tablet 40 mg PO QPM #30 tabs 11/02/14 aspirin 81 mg chewable tablet 81 mg PO DAILY #0 tabs 02/17/19 diclofenac sodium 3 % topical gel 1 applic topical BID #100 grams 10/04/20 Allergies Allergy/AdvReac Type Severity Reaction Status Date / Time adhesive tape Allergy Skin Rash Verified 12/02/24 08:16 Latex, Natural Rubber Allergy Skin Rash Verified 12/02/24 08:16 Sulfa (Sulfonamide Allergy Skin Rash Verified 12/02/24 08:16 Antibiotics) General Stated Complaint: Epistaxis SUSAN: 3 Exam Narrative Exam Narrative: left nares with small bleeding vessel along anterior septum, no blood noted within the tonsillar region, alert and oriented, no acute distress cardiac rate and rhythm regular answering questions appropriately no significant active bleeding Course Vital Signs Vital signs: Vital Signs Temperature 36.7 C 12/02/24 08:13 Pulse 87 12/02/24 08:13 Respiratory Rate 18 12/02/24 08:13 Blood Pressure 154/73 H 12/02/24 08:13 Pulse Oximetry 96 12/02/24 08:13 Temperature 36.7 C 12/02/24 08:13 Temperature Source Oral 12/02/24 08:13 Pulse 69 12/02/24 09:54 Respiratory Rate 18 12/02/24 09:54 Blood Pressure 119/60 12/02/24 09:54 Pulse Oximetry 97 12/02/24 09:54 Lab/Test Results Lab/Test Results: Laboratory Tests Range/Units 12/02/24 08:30 WBC (4.4-10.8) 10^3/uL 16.33 H RBC (3.93-5.22) 10^6/uL 4.57 Hgb (11.2-15.7) g/dL 13.9 Hct (36.0-46.0) % 42.1 MCV (80-95) fL 92 MCH (27.0-33.0) pg 30.4 MCHC (32.0-36.0) % 33.0 RDW (11.7-14.6) % 13.8 Plt Count (130-400) 10^3/uL 243 MPV (8.0-11.0) fL 10.5 Immature Gran % % 0.0 Neutrophils % % 25.0 Lymphocytes % % 62.0 Atypical Lymphs % % 6 Monocytes % % 6.0 Eosinophils % % 1.0 Basophils % % 0.0 Nucleated RBC % (0.0-0.3) % 0.0 Absolute Neutrophils (1.2-6.7) 10^3/uL 4.08 Absolute Lymphocytes (1.2-3.4) 10^3/uL 11.10 H Absolute Monocytes (0.1-0.8) 10^3/uL 0.98 H Absolute Eosinophils (0.0-0.7) 10^3/uL 0.16 Absolute Basophils (0.0-0.2) 10^3/uL 0.00 RBC Morphology Normal Sodium (136-145) mmol/L 142 Potassium (3.5-5.1) mmol/L 4.0 Chloride (98-107) mmol/L 103 Carbon Dioxide (21.0-32.0) mmol/L 29.6 Anion Gap (3-11) mmol/L 9.4 BUN (7-18) mg/dL 7 Creatinine (0.55-1.02) mg/dL 0.8 Est GFR (CKD-EPI 2020) (mL/min/1.73m2) 72.16 Glucose (74-106) mg/dL 108 H Calcium (8.5-10.1) mg/dL 9.6 Procedure Epistaxis Control Date of Procedure: 12/02/24 Time of Procedure: 09:00 Provider that performed the procedure: Franca Serrano Patient Consented: Verbally Time Out Performed: Yes Nostril: left Clots Removed by: blowing nose Cautery Used: silver nitrate Medical Decision Making Results: CBC and CMP without acute abnormality Assessment and plan: Patient without significant active bleeding small anterior vessel noted, silver nitrate used to cauterize. Coagulation achieved. Nose clamp supplied for home. Patient may continue her Eliquis. Return precautions reviewed ENT appointment on December 28 per patient. PFSH All Active Problems (Updated 12/02/24 @ 09:43 by TOYA Hall) Epistaxis, recurrent (Acute) Epistaxis (Acute) Atypical nevus (Acute) Skin cancer screening (Acute) Actinic keratosis (Acute) Dyslipidemia (Acute) Asymmetrical sensorineural hearing loss (Acute) Impacted cerumen, left ear (Acute) Muscle strain of wrist (Acute) Conductive hearing loss, external ear (Acute) HTN (hypertension) (Chronic) Leukocytosis (Chronic) Medical History (Updated 12/02/24 @ 09:43 by TOYA Hall) shelter current use of anticoagulant HLD (hyperlipidemia) SVT (supraventricular tachycardia) Cerebral infarction Obesity Chronic lymphoid leukemia managed by [facility] [facility] History of CVA (cerebrovascular accident) 2016 Pulmonary embolus, left 2020 PSVT (paroxysmal supraventricular tachycardia) ablation at [facility] [place], on toprol [facility] Ganglion cyst Chronic leukemia HTN (hypertension) History of pulmonary embolus during Dysphagia as late effect of cerebrovascular accident (CVA) (12/29/14) H/O thyroid nodule (12/29/14) Surgical History (Updated 11/29/24 @ 09:41 by Xin Talamantes RN) History of surgery Right benign breast tumor removal 1986 S/P ablation of atrial fibrillation H/O colonoscopy S/P bilateral cataract extraction H/O tubal ligation History of cholecystectomy H/O hysterectomy for benign disease Family History (Updated 11/29/24 @ 09:44 by Xin Talamantes, REINA) Father , 26 years of rheumatic fever No problems noted. Mother , 89 yrs lung disease COPD (chronic obstructive pulmonary disease) Breast cancer Hypertension Son Alive and well Brother Hypertension Hyperlipidemia Heart disease Sister Hyperlipidemia Paternal Grandmother Diabetes Social History Smoking/Tobacco Use Status: Never Smoking risk assessment performed?: Yes Alcohol Intake: never Drug use: Never Substance use type: does not use Household members: spouse Number of Children: 3 current occupation: Retired What is your relationship status?: Panel score (0-1 are the most socially isolated patients): 1 Do you feel safe at home: Yes Do you feel safe in your relationship?: Yes
== END 2024-12-02 09:56 | disposition home or self-care (01) ==
PROVIDERS: Emergency Provider Physician Assistant; PCP Nurse Practitioner Family
DX: R04.0 Epistaxis (principal)
CPT/HCPCS: 99283 ×2; 30901; 36415; 80048; 85025